=== PATIENT | female | born 1980 | race American Indian/Alaskan Native ===

== ENCOUNTER 2018-07-06 18:34 | Inpatient (IN) | payer MEDICARE, SELFPAY ==
--- NOTE | 2018-07-06 19:14 | Emergency Department Report ---
Blank Doc - Documentation Documentation: This is a 38-year-old female that presents with abdominal pain with n/v. This initial assessment/diagnostic orders/clinical plan/treatment(s) is/are subject to change based on patient's health status, clinical progression and re- assessment by fellow clinical providers in the ED. Further treatment and workup at subsequent clinical providers discretion. Patient/guardians urged not to elope from the ED as their condition may be serious if not clinically assessed and managed. Initial orders include: 1- Patient sent to MAIN ED for further evaluation and treatment 2- labs 3- UA 4- XR abd
[2018-07-06 19:42] LABS: Basophils % (Auto) 0.2 % (0.0-1.8); Hematocrit 37.7 % (30.3-42.9); Hemoglobin 12.9 gm/dl (10.1-14.3); Lymphocytes # (Auto) 0.8 K/mm3 (1.2-5.4); Lymphocytes % (Auto) 5.7 % (13.4-35.0); Mean Corpuscular HGB Conc 34 % (30-34); Mean Corpuscular Volume 91 fl (79-97); Monocytes # (Auto) 1.1 K/mm3 (0.0-0.8); Platelet Count 270 K/mm3 (140-440); Red Blood Count 4.13 M/mm3 (3.65-5.03)
[2018-07-06 19:55] LABS: Albumin 3.8 g/dL (3.9-5); Bilirubin,Direct 0.5 mg/dL (0-0.2); Calcium 9.1 mg/dL (8.4-10.2)
[2018-07-06] MEDS ORDERED: ZOFRAN IV ONE (22:06)
[2018-07-06] MEDS ORDERED: SUBLIMAZE IV ONE (22:06)
[2018-07-06] MEDS ORDERED: NACL 0.9% 500 ML 500 ML IV ONE (22:06)
--- NOTE | 2018-07-06 22:12 | Emergency Department Report ---
HPI - General Chief Complaint: Abdominal Pain Time Seen by Provider: 07/06/18 19:12 - HPI HPI: Room 5 The patient is a 38-year-old female presented with a chief complaint of "peritonitis." The patient states she believes she is peritonitis secondary to onset of cloudy peritoneal dialysis fluid and abdominal pain. Patient states she developed midepigastric abdominal pain last night as constant sharpness that waxes and wanes. The patient states her peritoneal dialysis fluid became cloudy last night as well. Patient is to nausea vomiting and diarrhea. 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 She states she had her PD fluid drained and more fluid place with the addition of antibiotics. Patient states she does not remember the name of the antibiotic. Patient states he was instructed to come to the ED for further evaluation after she was found to be hypotensive. The patient a pain score of 9/10 Location: Abdomen Duration: Constant since last night Quality: Sharp Severity: 9/10 Modifying factors: [see above] Context: [see above] Mode of transportation: [not driving] ED Past Medical Hx - Past Medical History Hx Hypertension: Yes Hx Renal Disease: Yes (PD) Additional medical history: Hypothyroidism - Surgical History Additional Surgical History: thyroidectomy, ovarian cysts removed, peritoneal dialysis catheter - Family History Family history: no significant - Social History Smoking Status: Never Smoker Substance Use Type: None (denies illicit drug use) - Medications Home Medications: Home Medications Medication Instructions Recorded Confirmed Last Taken Type Acetaminophen [Acetaminophen TAB] 650 mg PO Q4H PRN tablet 05/21/17 Unknown Rx Bisacodyl [Dulcolax suppos] 10 mg [place] QDAY PRN supp.rect 05/21/17 Unknown Rx Calcitriol [Rocaltrol] 0.5 mcg PO QDAY capsule 05/21/17 Unknown Rx Calcium Carbonate [Tums] 1,000 mg PO BID tablet 05/21/17 Unknown Rx Dialysate Lo Michael 1.5% Soln 2,000 ml IP Q4H bag 05/21/17 Unknown Rx [Dianeal Low Calcium W/1.5% Dextrose] Famotidine [Pepcid] 10 mg PO BID tablet 05/21/17 Unknown Rx Lactulose [Cephulac] 30 gm PO Q8HR PRN oral.liqd 05/21/17 Unknown Rx Potassium Chloride [K-Dur] 20 meq PO BID tablet 05/21/17 Unknown Rx oxyCODONE /ACETAMINOPHEN [Percocet 1 tab PO Q6H PRN #30 tablet 05/21/17 Unknown Rx 5/325 mg] ED Review of Systems ROS: Stated complaint: PERITONITIS/LOW BLOOD PRESSURE Other details as noted in HPI Constitutional: denies: fever Eyes: denies: eye pain ENT: denies: throat pain Respiratory: no symptoms reported Cardiovascular: denies: chest pain Endocrine: no symptoms reported Gastrointestinal: abdominal pain, nausea, vomiting, diarrhea Genitourinary: denies: abnormal menses Musculoskeletal: denies: back pain Neurological: denies: headache Physical Exam - Physical Exam Vital Signs: Vital Signs 07/06/18 07/06/18 07/06/18 18:53 19:12 22:05 Temperature 99.5 F 99.5 F 99.1 F Pulse Rate 131 H 127 H 123 H Respiratory 20 18 24 Rate Blood Pressure 106/70 Blood Pressure 98/68 101/74 [Left] Blood Pressure 91/60 [Right] O2 Sat by Pulse 98 97 98 Oximetry Physical Exam: GENERAL: The patient is well-developed well-nourished female lying on stretcher not appearing to be in acute distress. [] HEENT: Normocephalic. Atraumatic. Extraocular motions are intact. Patient has moist mucous membranes. NECK: Supple. Trachea midline CHEST/LUNGS: Clear to auscultation. There is no respiratory distress noted. HEART/CARDIOVASCULAR: Regular. There is tachycardia. There is no gallop rub or murmur. ABDOMEN: Abdomen is soft, with tenderness to palpation in the midepigastric region. Patient has normal bowel sounds. There is no abdominal distention. SKIN: There is no rash. There is no edema. There is no diaphoresis. NEURO: The patient is awake, alert, and oriented. The patient is cooperative. The patient has normal speech MUSCULOSKELETAL: There is no evidence of acute injury. ED Course Vital Signs 07/06/18 07/06/18 07/06/18 18:53 19:12 22:05 Temperature 99.5 F 99.5 F 99.1 F Pulse Rate 131 H 127 H 123 H Respiratory 20 18 24 Rate Blood Pressure 106/70 Blood Pressure 98/68 101/74 [Left] Blood Pressure 91/60 [Right] O2 Sat by Pulse 98 97 98 Oximetry - Consultations Consultation #1: 07/07/18 02:21 Nephrology paged 07/07/18 02:[address] Zendejas ED Medical Decision Making - Lab Data Result diagrams: 07/06/18 19:20 07/06/18 19:20 - Differential Diagnosis spontaneous bacterial peritonitis, gastroenteritis, dehydration Critical care attestation.: If time is entered above; I have spent that time in minutes in the direct care of this critically ill patient, excluding procedure time. ED Disposition Clinical Impression: Spontaneous bacterial peritonitis, Leukocytosis Disposition: OP ADMIT IP TO THIS HOSP Is pt being admited?: Yes Does the pt Need Aspirin: No Condition: Fair Instructions: Abdominal Pain (ED) Referrals: LOGAN ARGUETA MD [Primary Care Provider] - 3-5 Days Time of Disposition: 02:27 (hospitalist notified (Dr. Krystle Mistry))
[2018-07-07] MEDS ORDERED: REGLAN IV ONE (02:02)
[2018-07-07] MEDS ORDERED: ROCEPHIN/NS 1 GM/50 ML 1 GM/50 ML BAG IV SCH (02:48)
[2018-07-07] MEDS ORDERED: SODIUM CHLORIDE FLUSH SYRINGE 10 ML IV PRN (02:49)
[2018-07-07] MEDS ORDERED: TYLENOL PO PRN (02:49)
--- NOTE | 2018-07-07 02:54 | History and Physical Report ---
History of Present Illness Date of examination: 07/07/18 History of present illness: 38-year-old woman with history of hypertension, hypothyroidism, end-stage renal disease on peritoneal dialysis because emergency room with complaints of abdominal pain. Abdominal pain is in the mid abdomen which she describes as sharp pain, constant, intensity 6/10, no radiation, can't identify exacerbating factors. Complains of multiple episodes of nausea and vomiting and diarrhea, also state that the peritoneal fluid is cloudy, no fever or chills Review of systems Constitutional: no weight loss, chills, fever Ears, eyes, nose, mouth and throat: no nasal congestion, no nasal discharge, no sinus pressure, no vision change, no red eye. Neck: No neck pain or rigidity. Cardiovascular: no palpitations, chest pain Respiratory: no cough, shortness of breath Gastrointestinal: no hematochezia, +abdominal pain Genitourinary : no frequency , no hematuria Musculoskeletal: no joint swelling or muscle ache Integumentary: no rash, no pruritis Neurological: no parathesias, no focal weakness Endocrine: no cold or heat intolerance, no polyuria or polydipsia Hematologic/Lymphatic: no easy bruising, no easy bleeding, no gland swelling Allergic/Immunologic: no urticaria, no angioedema. PAST MEDICAL HISTORY:hypertension, hypothyroidism, end-stage renal disease PAST SURGICAL HISTORY: Thyroidectomy, cyst removed from the ovary SOCIAL HISTORY: Denies alcohol, drugs, tobacco FAMILY HISTORY: Hypertension Medications and Allergies Allergies Allergy/AdvReac Type Severity Reaction Status Date / Time No Known Allergies Allergy Verified 05/13/14 18:02 Home Medications Medication Instructions Recorded Confirmed Last Taken Type Bisacodyl [Dulcolax suppos] 10 mg [place] QDAY PRN supp.rect 05/21/17 07/07/18 Unknown Rx Dialysate Lo Michael 1.5% Soln 2,000 ml IP Q4H bag 05/21/17 07/07/18 Unknown Rx [Dianeal Low Calcium W/1.5% Dextrose] Pantoprazole [Protonix TAB] 40 mg PO QDAY 07/07/18 07/07/18 2 Days Ago History ~07/05/18 Calcitriol [Rocaltrol] 0.5 mcg PO QDAY #30 capsule 07/12/18 Unknown Rx Calcium Carbonate [Tums] 1,000 mg PO BID #50 tablet 07/12/18 Unknown Rx Pantoprazole [Protonix TAB] 40 mg PO DAILY #30 tablet 07/12/18 Unknown Rx cloNIDine [Catapres] 0.1 mg PO QHS #30 tablet 07/12/18 Unknown Rx Active Meds: Active Medications Acetaminophen (Tylenol) 650 mg PO Q4H PRN PRN Reason: Pain MILD(1-3)/Fever >100.5/BACH Enoxaparin Sodium (Lovenox) 30 mg SUB-Q QDAY PREET Piperacillin Sod/Tazobactam Sod (Zosyn/Ns 2.25 Gm/50ml) 2.25 gm in 50 mls @ 100 mls/hr IV Q8HR PRE[facility]; Protocol Ondansetron HCl (Zofran) 4 mg IV Q4H PRN PRN Reason: Nausea And Vomiting Sodium Chloride (Sodium Chloride Flush Syringe 10 Ml) 10 ml IV BID PREET Sodium Chloride (Sodium Chloride Flush Syringe 10 Ml) 10 ml IV PRN PRN PRN Reason: LINE FLUSH Exam - Physical Exam Narrative exam: General Apperance: The patient lying in bed, breathing comfortable HEENT: Normocephalic, atraumatic. Pupils equally round and reactive to light, EOMI, no sclericterus or JVD or thyromegaly or nodule. , no carotid bruit, mucous membranes moist, no exudate or erythema Heart: S1-S2, regular is rhythm Lungs: Clear to auscultation bilaterally, breathing comfortable Abdomen: Positive bowel sounds, soft, tender diffusely, no rebound or guarding, nondistended, no organomegaly Extremities: No edema cyanosis clubbing Skin: no rash, nodule, warm and dry Neuro: cranial nerves 2-12 intact, speech is fluent, motor/sensory intact - Constitutional Vitals: Temp Pulse Resp BP Pulse Ox 98.7 F 108 H 18 111/64 94 07/07/18 02:20 07/07/18 00:04 07/07/18 00:04 07/07/18 00:04 07/06/18 23:00 Results - Labs CBC & Chem 7: 07/11/18 04:33 07/11/18 04:33 Labs: Abnormal lab results 07/06/18 07/06/18 Range/Units 19:20 19:20 WBC 14.3 H (4.5-11.0) K/mm3 RDW 16.0 H (13.2-15.2) % Lymph % (Auto) 5.7 L (13.4-35.0) % Rock % (Auto) 8.0 H (0.0-7.3) % Lymph # 0.8 L (1.2-5.4) K/mm3 Rock # 1.1 H (0.0-0.8) K/mm3 Seg Neutrophils % 86.1 H (40.0-70.0) % Seg Neutrophils # 12.3 H (1.8-7.7) K/mm3 Potassium 3.1 L (3.6-5.0) mmol/L Chloride 89.2 L (98-107) mmol/L BUN 40 H (7-17) mg/dL Creatinine 16.2 H (0.7-1.2) mg/dL Glucose 156 H (65-100) mg/dL Direct Bilirubin 0.5 H (0-0.2) mg/dL ALT 87 H (7-56) units/L Alkaline Phosphatase 186 H (35-129) units/L Total Protein 8.7 H (6.3-8.2) g/dL Albumin 3.8 L (3.9-5) g/dL Lipase 66 H (13-60) units/L Assessment and Plan Assessment SBP Abdominal pain with diarrhea, rule out colitis End-stage renal disease on PD Hypertension Hypothyroidism Plan Admit medicine Start IV Zosyn,Obtain cultures, CT abdomen Consult renal, IV morphine Continue appropriate outpatient medications DVT prophylaxis
[2018-07-07] MEDS ORDERED: MORPHINE IV PRN (03:04)
[2018-07-07] MEDS: ZOSYN/NS 2.25 GM/50ML 2.25 GM/50 ML BAG IV SCH ×3 (03:39→20:11)
--- NOTE | 2018-07-07 05:20 | Cat Scan Report ---
PROCEDURE: CT ABDOMEN PELVIS WO CON TECHNIQUE: Routine axial imaging was obtained of the abdomen and pelvis without oral or IV contrast. Sagittal and coronal reconstructions were reviewed. HISTORY: abd pain COMPARISONS: None FINDINGS: The lung bases are clear. Pleural fluid is not seen. There is moderate fluid throughout the abdomen and pelvis. Whether this is related to dialysis fluid or nonspecific ascites is uncertain. The liver, gallbladder, biliary tree, pancreas and spleen otherw ise appear normal. The adrenal glands appear normal. The kidneys are very atrophic. There are benign cortical cysts in the right kidney measuring 2.3 cm in diameter. There is no evidence of hydronephros is. The bowel loops are not distended. There is no evidence of adenopathy. There are peritoneal sutur es along the anterior abdominal wall. There is no recurrent hernia. There is a dialysis catheter coil ed in the anterior aspect of the pelvis. The uterus is normal size and reveals coarse calcifications compatible with involuted fibroids. The bladder appears normal. The skeletal structures are well-main tained. IMPRESSION: Considerable free fluid throughout the abdomen and pelvis. However much of this is related to dialysi s versus nonspecific ascites is uncertain. Previous abdominal wall hernia repair without recurrence. Atrophic kidneys with benign cortical cysts in the right kidney. Coarse calcifications along the dome of the uterus compatible with involuted fibroids.. This document is electronically signed by Charanjit Davis MD., July 07 2018 05:17:56 AM ET
[2018-07-07] MEDS ORDERED: VANCOMYCIN/NS 1 GM/250 ML 1 GM/250 ML BAG IV ONE (05:32)
[2018-07-07] MEDS ORDERED: VANCOMYCIN 1,750 MG in NACL 0.9% 500 ML 500 ML IV ONE (06:00)
[2018-07-07] MEDS ORDERED: VANCOMYCIN PHARMACY TO DOSE IV SCH (06:00)
[2018-07-07] MEDS ORDERED: NACL 0.9% 1000 ML 1,000 ML IV SCH (06:00)
[2018-07-07 06:58] LABS: Total Cells Counted 100 /mm3
--- NOTE | 2018-07-07 10:59 | Event Note ---
Date: 07/07/18 Patient with ESRD on dialysis presents with abd pain, nausea, vomiting, diarrhea. I have seen and examined her. Obtain stool studies. consult ID.
[2018-07-07] MEDS: SODIUM CHLORIDE FLUSH SYRINGE 10 ML IV SCH (11:01)
[2018-07-07] MEDS: LOVENOX SUB-Q SCH (11:01)
--- NOTE | 2018-07-07 11:12 | Consultation ---
History of Present Illness - Reason for Consult Consult date: 07/07/18 Abdominal Pain, Leukocytosis, Peritonitis - History of Present Illness This patient is a 38-year old female with a past medical history of hypertension, hypothyroidism, end-stage renal disease on peritoneal dialysis, presented to the emergency room on 07/06/18 with complaints of midepigastric abdominal pain, described as constant sharpeness that waxes and wanes. She also stated thata her peritoneal dialysis fluid became cloudy, she then went to her [employer] and was placed on antibiotics and [facility] On admission WBC 14.3,, Creatinine 16. 2, ALT 87, ALP 186, Temperature 99.5, HR 131 and BP 91/60. Review of Systems: General: no fever,chills, nightsweats, unintentional weight change, or change in appetite, + generalized weakness Cutaneous: no rash, pruritus Head: no headaches or injury Eyes: no changes in vision, eye pain, double vision Ears: no ear pain, ear discharge, ringing or hearing loss Nose: no nose bleeding, stuffiness Mouth & throat: no bleeding gums, no horseness, no dental problems, or swollen glands Neck: no pain, node enlargement/lumps, tyroid enlargement or tenderness Respiratory: no cough, wheezing, sputum, hemoptysis, pleuritic chest pain Cardiovascular: no chest pain, leg edema, cyanosis, JONES, orthopnea Musculoskeletal: no decreased joint motion, bone or joint pain, joint swelling, muscle aches Gastrointestinal: +nausea, no vomiting, hematemesis, diarrhea, constipation, + abdominal tenderness, +PD catheter Genitourinary/Reproductive: no frequent urination, no dysuria, hematuria, incontinence Neurogical: no seizures, no headaches, no weakness, no paresthesias, no loss of speech or vision; no memory loss, no vertigo, no tremors, no numbness Psychiatric: stable mood; no excessive anxiety, sadness or moodiness Medications and Allergies Allergies Allergy/AdvReac Type Severity Reaction Status Date / Time No Known Allergies Allergy Verified 05/13/14 18:02 Home Medications Medication Instructions Recorded Confirmed Last Taken Type Acetaminophen [Acetaminophen TAB] 650 mg PO Q4H PRN tablet 05/21/17 Unknown Rx Bisacodyl [Dulcolax suppos] 10 mg [place] QDAY PRN supp.rect 05/21/17 Unknown Rx Calcitriol [Rocaltrol] 0.5 mcg PO QDAY capsule 05/21/17 Unknown Rx Calcium Carbonate [Tums] 1,000 mg PO BID tablet 05/21/17 Unknown Rx Dialysate Lo Michael 1.5% Soln 2,000 ml IP Q4H bag 05/21/17 Unknown Rx [Dianeal Low Calcium W/1.5% Dextrose] Famotidine [Pepcid] 10 mg PO BID tablet 05/21/17 Unknown Rx Lactulose [Cephulac] 30 gm PO Q8HR PRN oral.liqd 05/21/17 Unknown Rx Potassium Chloride [K-Dur] 20 meq PO BID tablet 05/21/17 Unknown Rx oxyCODONE /ACETAMINOPHEN [Percocet 1 tab PO Q6H PRN #30 tablet 05/21/17 Unknown Rx 5/325 mg] Active Meds: Active Medications Acetaminophen (Tylenol) 650 mg PO Q4H PRN PRN Reason: Pain MILD(1-3)/Fever >100.5/BACH Enoxaparin Sodium (Lovenox) 30 mg SUB-Q QDAY [facility] Last Admin: 07/07/18 11:01 Dose: Not Given Documented by: Piperacillin Sod/Tazobactam Sod (Zosyn/Ns 2.25 Gm/50ml) 2.25 gm in 50 mls @ 100 mls/hr IV Q8H [facility]; Protocol Last Admin: 07/07/18 03:39 Dose: 100 mls/hr Documented by: Sodium Chloride (Nacl 0.9% 1000 Ml) 1,000 mls @ 75 mls/hr IV DIRECT PREET Metoclopramide HCl (Reglan) 5 mg IV Q6H PRN PRN Reason: nausea or vomiting Morphine Sulfate (Morphine) 2 mg IV Q4H PRN PRN Reason: Pain, Moderate (4-6) Ondansetron HCl (Zofran) 4 mg IV Q4H PRN PRN Reason: Nausea And Vomiting Peritoneal Dialysis Solution (Dianeal Low Calcium W/1.5% Dextrose) 2,000 ml IP Q6HR [facility] Sodium Chloride (Sodium Chloride Flush Syringe 10 Ml) 10 ml IV BID [facility] Last Admin: 07/07/18 11:01 Dose: 10 ml Documented by: Sodium Chloride (Sodium Chloride Flush Syringe 10 Ml) 10 ml IV PRN PRN PRN Reason: LINE FLUSH Physical Examination - Physical Exam Narrative exam: Constitutional: Alert, cooperative. generallized weakness. Morbid obesity Head, Ears, Nose: Normocephalic, atraumatic. External ears, nose normal Eyes: Conjunctivae/corneas clear. No icterus. No ptosis. Neck: Supple, no meningeal signs Oral: dentition good, no thrush Cardiovascular: S1, S2 normal. Respiratory: Good air entry, clear to auscultation bilaterally GI: Soft, tender, bowel sounds normal. + PD catheter Musculoskeletal: No pedal edema, no cyanosis. Skin: No rash or abscess. Hem/Lymphatic: No palpable cervical or supraclavicular nodes. No lymphangitis Psych: Mood ok. Affect normal Neurological: Awake, alert, oriented. - Constitutional Vitals: Vital Signs Temp Pulse Resp BP Pulse Ox 98.3 F 117 H 18 107/68 98 07/07/18 08:51 07/07/18 08:51 07/07/18 08:51 07/07/18 08:51 07/07/18 08:51 Temperature -Last 24 Hours Temperature 98.3 F Temperature 98.4 F Temperature 98.7 F Temperature 99.1 F Temperature 99.5 F Temperature 99.5 F Results - Labs CBC & Chem 7: 07/06/18 19:20 07/06/18 19:20 Labs: Abnormal lab results 07/06/18 07/06/18 Range/Units 19:20 19:20 WBC 14.3 H (4.5-11.0) K/mm3 RDW 16.0 H (13.2-15.2) % Lymph % (Auto) 5.7 L (13.4-35.0) % Dare % (Auto) 8.0 H (0.0-7.3) % Lymph # 0.8 L (1.2-5.4) K/mm3 Dare # 1.1 H (0.0-0.8) K/mm3 Seg Neutrophils % 86.1 H (40.0-70.0) % Seg Neutrophils # 12.3 H (1.8-7.7) K/mm3 Potassium 3.1 L (3.6-5.0) mmol/L Chloride 89.2 L (98-107) mmol/L BUN 40 H (7-17) mg/dL Creatinine 16.2 H (0.7-1.2) mg/dL Glucose 156 H (65-100) mg/dL Direct Bilirubin 0.5 H (0-0.2) mg/dL ALT 87 H (7-56) units/L Alkaline Phosphatase 186 H (35-129) units/L Total Protein 8.7 H (6.3-8.2) g/dL Albumin 3.8 L (3.9-5) g/dL Lipase 66 H (13-60) units/L - Imaging and Cardiology CT scan - abdomen: report reviewed (07/07/2018 Abdomen/Pelvis CT:Benign cortical cysts in the right kidney measuring 2.3 cm in diameter. No evidence of hyronephrosis. considerable free fluid throughout t abdomen/pelvis.) Assessment and Plan Cultures: 07/06/2018 Peritoneal Dialysate: in progress 07/06/2018 Blood: in progress A/P: 38-year old female with a past medical history of hypertension, hypothyroidism, end-stage renal disease on peritoneal dialysis, presented to the emergency room on 07/06/18 with complaints of midepigastric abdominal pain, described as constant sharpeness that waxes and wanes. She also stated that her peritoneal dialysis fluid became cloudy, she then went to her [employer] and was placed on antibiotics and [facility]. 1. Sepsis on admission: evidenced by leukocytosis, tachycardia and hypotension. Source likely PD associated Peritonitis.. No fever. Presented to [facility] clinic prior to admission and was treated empirically with intraper itoneal Ancef and Fortaz. Cultures were drawn at the dialysis clinic and are pending. Blood cultures were drawn at [facility] and are pending. Currently being treated with Vancomycin. Start Cefepime. 2. PD associated Peritonitis: Peritoneal fluid shows WBC 9925, RBC 525, Seg, 89.0, Lymphocytes 8.0, Monocytes 3.0, Eosnophils 0, Basophils 0. Previous admission 05/20/18 for sepsis ,etio. peritonitis. Peritoneal dialysate cultures are in progress. Culture from dialysis clinic on 05/16/17 grew gram positive cocci in clusters and pairs. Will follow up with clinic for culture report..Continue renally adjusted Vancomycin and Cefepime. 3. ESRD on peritoneal dialysis; antibiotics renally dosed. 4. Morbid Obesity: Plan: -f/u Blood cultures -f/u peritoneal dialysate cultures -Discontinue Zosyn -Start Cefepime 1 gm IV every 24 hours -Continue Vancomycin PK dosing, target rough 10-[address] Cerrato will be emergency response officer this weekend [phone], please call for questions. [facility] M: [phone] O:[phone]
[2018-07-07] MEDS: REGLAN IV PRN ×2 (11:14→20:12)
[2018-07-07] MEDS: DIANEAL LOW CALCIUM W/1.5% DEXTROSE IP SCH ×2 (11:41→15:19)
--- NOTE | 2018-07-07 15:00 | Consultation ---
History of Present Illness - Reason for Consult end stage renal disease, other (PD catheter peritonitis ) - History of Present Illness 38 year old lady with medical history signficant for HTN , Glomerulonephritis , ESRD on peritoneal dialysis presents wiht complaints of worsening nausea, vomitting and diarrhoea as well as abdominal pain . She denies fevers or chills. Denies othopnea or PND She denies any break in her technique. she denies any bleeding, She has has some low blood pressures. Her curent prescription is 4 cycles , 9hours wiht 2.5L fill volumes and a Last fill without a midday exchange. .She denies edema. Medications and Allergies Allergies Allergy/AdvReac Type Severity Reaction Status Date / Time No Known Allergies Allergy Verified 05/13/14 18:02 Home Medications Medication Instructions Recorded Confirmed Last Taken Type Bisacodyl [Dulcolax suppos] 10 mg [place] QDAY PRN supp.rect 05/21/17 07/07/18 Unknown Rx Calcitriol [Rocaltrol] 0.5 mcg PO QDAY capsule 05/21/17 07/07/18 1 Day Ago Rx ~07/06/18 Calcium Carbonate [Tums] 1,000 mg PO BID tablet 05/21/17 07/07/18 1 Day Ago Rx ~07/06/18 Dialysate Lo Michael 1.5% Soln 2,000 ml IP Q4H bag 05/21/17 07/07/18 Unknown Rx [Dianeal Low Calcium W/1.5% Dextrose] Pantoprazole [Protonix] 40 mg PO QDAY 07/07/18 07/07/18 2 Days Ago History ~07/05/18 cloNIDine [Catapres] 0.1 mg PO QHS 07/07/18 07/07/18 2 Days Ago History ~07/05/18 Active Meds: Active Medications Acetaminophen (Tylenol) 650 mg PO Q4H PRN PRN Reason: Pain MILD(1-3)/Fever >100.5/BACH Enoxaparin Sodium (Lovenox) 30 mg SUB-Q QDAY [facility] Last Admin: 07/07/18 11:01 Dose: Not Given Documented by: Piperacillin Sod/Tazobactam Sod (Zosyn/Ns 2.25 Gm/50ml) 2.25 gm in 50 mls @ 100 mls/hr IV Q8H [facility]; Protocol Last Admin: 07/07/18 11:28 Dose: 100 mls/hr Documented by: Sodium Chloride (Nacl 0.9% 1000 Ml) 1,000 mls @ 75 mls/hr IV DIRECT PREET Metoclopramide HCl (Reglan) 5 mg IV Q6H PRN PRN Reason: nausea or vomiting Last Admin: 07/07/18 11:14 Dose: 5 mg Documented by: Morphine Sulfate (Morphine) 2 mg IV Q4H PRN PRN Reason: Pain, Moderate (4-6) Ondansetron HCl (Zofran) 4 mg IV Q4H PRN PRN Reason: Nausea And Vomiting Peritoneal Dialysis Solution (Dianeal Low Calcium W/1.5% Dextrose) 2,000 ml IP Q6HR [facility] Last Admin: 07/07/18 11:41 Dose: Not Given Documented by: Peritoneal Dialysis Solution (Dianeal Low Calcium W/1.5% Dextrose) 2,500 ml IP Q4HR [facility] Sodium Chloride (Sodium Chloride Flush Syringe 10 Ml) 10 ml IV BID [facility] Last Admin: 07/07/18 11:01 Dose: 10 ml Documented by: Sodium Chloride (Sodium Chloride Flush Syringe 10 Ml) 10 ml IV PRN PRN PRN Reason: LINE FLUSH Review of Systems Constitutional: fatigue, weakness Ears, nose, mouth and throat: no bleeding gums Cardiovascular: orthopnea, lightheadedness, no edema, no shortness of breath Respiratory: no cough Gastrointestinal: abdominal pain, nausea, vomiting, no BRBPR Musculoskeletal: no hot joints Integumentary: no rash Neurological: weakness, no confusion Psychiatric: no anxiety, no memory loss Endocrine: no cold intolerance, no heat intolerance Hematologic/Lymphatic: no easy bruising, no easy bleeding Exam - Vital Signs Vital signs: Vital Signs Temp Pulse Resp BP Pulse Ox 99.5 F 131 H 20 98/68 98 07/06/18 18:53 07/06/18 18:53 07/06/18 18:53 07/06/18 18:53 07/06/18 18:53 - General Appearance General appearance: well-developed, well-nourished EENT: ATNC, PERRL, mucous membranes moist Neck: Present: neck supple Respiratory: Clear to Ascultation Heart: regular, S1S2 Gastrointestinal: Present: normoactive bowel sounds, tenderness, other (peritoneal dialysis catheter with clean dressing external cuff visible just below the surface. ). Absent: distended Integumentary: no rash, warm and dry Neurologic: no focal deficit, CN 3-12 intact Results - Lab Results 07/06/18 19:20 07/06/18 19:20 Most recent lab results Calcium 9.1 mg/dL (8.4-10.2) 07/06/18 19:20 Assessment and Plan - Patient Problems (1) ESRD (end stage renal disease) Current Visit: Yes Status: Acute Plan to address problem: ESRD on peritoneal dialysis -Daily PD - Fluid restriction (2) Peritonitis associated with peritoneal dialysis Current Visit: Yes Status: Acute Plan to address problem: PD catheter associated peritonitis - will initiate PD - ensure antibitoics vancomycin and Zosyn - can change Zosyn to Ceftazidime if available - PD cell count >9000 with numerous RBCS -Recheck Cell count - follow cultures. (3) Hypokalemia Current Visit: Yes Status: Acute Plan to address problem: Hypokalemia - Mild - Monitor . (4) Sepsis Current Visit: No Status: Acute Qualifiers: Sepsis type: sepsis due to unspecified organism Qualified Code(s): A41.9 - Sepsis, unspecified organism Plan to address problem: Sepsis 2/2 PD peritonitis - Leukocytosis and hypotension. - Ensure antibiotics - use yellow bags for PD if possible - Obtain Lactate levels.
[2018-07-07] MEDS ORDERED: DIANEAL LOW CALCIUM W/1.5% DEXTROSE IP SCH (18:00)
[2018-07-08] MEDS: DIANEAL LOW CALCIUM W/1.5% DEXTROSE IP SCH ×2 (01:50→01:56)
[2018-07-08] MEDS: ZOSYN/NS 2.25 GM/50ML 2.25 GM/50 ML BAG IV SCH ×4 (01:53→18:14)
[2018-07-08] MEDS: SODIUM CHLORIDE FLUSH SYRINGE 10 ML IV SCH ×3 (01:59→22:15)
[2018-07-08 05:31] LABS: Basophils % (Auto) 0.3 % (0.0-1.8); Eosinophils % (Auto) 0.1 % (0.0-4.3); Hematocrit 34.2 % (30.3-42.9); Hemoglobin 11.4 gm/dl (10.1-14.3); Lymphocytes # (Auto) 1.4 K/mm3 (1.2-5.4); Lymphocytes % (Auto) 11.1 % (13.4-35.0); Mean Corpuscular HGB Conc 33 % (30-34); Mean Corpuscular Volume 92 fl (79-97); Monocytes # (Auto) 1.4 K/mm3 (0.0-0.8); Monocytes % (Auto) 10.8 % (0.0-7.3); Platelet Count 244 K/mm3 (140-440); Red Blood Count 3.72 M/mm3 (3.65-5.03); Red Cell Distribution Width 15.5 % (13.2-15.2)
[2018-07-08 05:51] LABS: Calcium 8.6 mg/dL (8.4-10.2)
[2018-07-08] MEDS: LOVENOX SUB-Q SCH (10:03)
[2018-07-08] MEDS: DIANEAL LOW CALCIUM W/2.5% DEXTROSE IP SCH ×3 (10:09→22:16)
[2018-07-08] MEDS ORDERED: MAXIPIME/NS 1 GM/100 ML 1 GM/100 ML BAG IV SCH (12:00)
--- NOTE | 2018-07-08 14:11 | Progress Note ---
Assessment and Plan - Patient Problems (1) ESRD (end stage renal disease) Current Visit: Yes Status: Acute Plan to address problem: ESRD on peritoneal dialysis -Daily PD - Fluid restriction (2) Peritonitis associated with peritoneal dialysis Current Visit: Yes Status: Acute Plan to address problem: PD catheter associated peritonitis - will initiate PD - ensure antibitoics vancomycin and Zosyn - can change Zosyn to Ceftazidime if available - PD cell count >9000 with numerous RBCS -Recheck Cell count - follow cultures. (3) Hypokalemia Current Visit: Yes Status: Acute Plan to address problem: Hypokalemia - Mild - Monitor . (4) Sepsis Current Visit: No Status: Acute Qualifiers: Sepsis type: sepsis due to unspecified organism Qualified Code(s): A41.9 - Sepsis, unspecified organism Plan to address problem: Sepsis 2/2 PD peritonitis - Leukocytosis and hypotension. - Ensure antibiotics - can use green bags for PD - Obtain Lactate levels. Subjective Interval history: 38 year old lady with medical history signficant for HTN , Glomerulonephritis , ESRD on peritoneal dialysis presents with complaints of worsening nausea, vomitting and diarrhoea as well as abdominal pain . She denies fevers or chills. Denies othopnea or PND She denies any break in her technique. she denies any bleeding, She has has some low blood pressures. Her curent prescription is 4 cycles , 9hours with 2.5L fill volumes and a Last fill without a midday exchang e. .She denies edema. She has signficant diarrhoea current on contact precautions Abdominal pain is improved. tolerated PD overnight. Objective - Vital Signs Vital signs: Vital Signs - 12hr 07/08/18 07/08/18 07/08/18 04:03 08:37 10:00 Temperature 98.4 F 98.4 F Pulse Rate 100 H 110 H Respiratory 16 16 Rate Blood Pressure 87/44 Blood Pressure 80/54 [Left] O2 Sat by Pulse 92 96 94 Oximetry - General Appearance General appearance: well-developed, well-nourished EENT: ATNC, PERRL, mucous membranes moist Neck: no JVD Respiratory: Present: Clear to Ascultation Cardiology: regular, S1S2 Gastrointestinal: normal, normoactive bowel sounds Integumentary: no rash Neurologic: no focal deficit, alert and oriented x3 Musculoskeletal: joint swelling Psychiatric: mood/affect appropriate - Lab 03/30/19 04:41 07/08/18 04:41 Most recent lab results Calcium 8.6 mg/dL (8.4-10.2) 07/08/18 04:41 Medications & Allergies - Medications Allergies/Adverse Reactions: Allergies No Known Allergies Allergy (Verified 05/13/14 18:02) Home Medications: Home Medications Medication Instructions Recorded Confirmed Last Taken Type Bisacodyl [Dulcolax suppos] 10 mg [place] QDAY PRN supp.rect 05/21/17 07/07/18 Unknown Rx Calcitriol [Rocaltrol] 0.5 mcg PO QDAY capsule 05/21/17 07/07/18 1 Day Ago Rx ~07/06/18 Calcium Carbonate [Tums] 1,000 mg PO BID tablet 05/21/17 07/07/18 1 Day Ago Rx ~07/06/18 Dialysate Lo Michael 1.5% Soln 2,000 ml IP Q4H bag 05/21/17 07/07/18 Unknown Rx [Dianeal Low Calcium W/1.5% Dextrose] Pantoprazole [Protonix] 40 mg PO QDAY 07/07/18 07/07/18 2 Days Ago History ~07/05/18 cloNIDine [Catapres] 0.1 mg PO QHS 07/07/18 07/07/18 2 Days Ago History ~07/05/18 Active Medications: Generic Name Dose Route Start Last Admin Trade Name Freq PRN Reason Stop Dose Admin Acetaminophen 650 mg 07/07/18 02:49 Tylenol PO Q4H PRN Pain MILD(1-3)/Fever >100.5/BACH Enoxaparin Sodium 30 mg 07/07/18 10:00 07/08/18 10:03 Lovenox SUB-Q 30 mg QDAY PREET Administration Piperacillin Sod/Tazobactam Sod 2.25 gm in 50 mls @ 100 mls/hr 07/07/18 03:00 07/08/18 10:02 Zosyn/Ns 2.25 Gm/50ml IV 100 mls/hr Q8H PREET Administration Protocol Sodium Chloride 1,000 mls @ 75 mls/hr 07/07/18 06:00 Nacl 0.9% 1000 Ml IV DIRECT PREET Cefepime HCl 1 gm in 100 mls @ 200 mls/hr 07/08/18 12:00 Maxipime/Ns 1 Gm/100 Ml IV 07/15/18 11:59 Q48HR PREET Protocol Metoclopramide HCl 5 mg 07/07/18 10:56 07/07/18 20:12 Reglan IV 5 mg Q6H PRN Administration nausea or vomiting Morphine Sulfate 2 mg 07/07/18 03:04 Morphine IV Q4H PRN Pain, Moderate (4-6) Ondansetron HCl 4 mg 07/07/18 02:49 Zofran IV Q4H PRN Nausea And Vomiting Peritoneal Dialysis Solution 2,000 ml 07/08/18 10:00 07/08/18 10:09 Dianeal Low Calcium W/2.5% Dextrose IP 2,000 ml Q6H PREET Administration Sodium Chloride 10 ml 07/07/18 10:00 07/08/18 10:08 Sodium Chloride Flush Syringe 10 Ml IV 10 ml BID PREET Administration Sodium Chloride 10 ml 07/07/18 02:49 Sodium Chloride Flush Syringe 10 Ml IV PRN PRN LINE FLUSH
[2018-07-08] MEDS: ZOFRAN IV PRN ×2 (16:18→22:15)
[2018-07-09] MEDS: ZOSYN/NS 2.25 GM/50ML 2.25 GM/50 ML BAG IV SCH (03:04)
[2018-07-09] MEDS: DIANEAL LOW CALCIUM W/2.5% DEXTROSE IP SCH ×2 (03:05→10:57)
[2018-07-09] MEDS ORDERED: DULCOLAX PR PRN (09:25)
[2018-07-09] MEDS ORDERED: PEPCID PO SCH (10:00)
[2018-07-09] MEDS ORDERED: PROTONIX IV SCH (10:00)
[2018-07-09] MEDS: LOVENOX SUB-Q SCH (10:50)
[2018-07-09] MEDS: ROCALTROL PO SCH (10:50)
[2018-07-09] MEDS: SODIUM CHLORIDE FLUSH SYRINGE 10 ML IV SCH ×2 (10:51→21:50)
[2018-07-09] MEDS: TUMS PO SCH ×2 (10:51→22:55)
[2018-07-09] MEDS ORDERED: VANCOMYCIN 1,500 MG in NACL 0.9% 500 ML 500 ML IV ONE (11:30)
--- NOTE | 2018-07-09 11:58 | Progress Note ---
Assessment and Plan Assessment and plan: Sepsis due to peritonitis On Cefepime, Vancomycin ID Physician following Peritonitis Peritoneal dialysis he relates culture growing gram-negative rods Continue IV antibiotics ID physician following ESRD on peritoneal dialysis Nephrology managing HTN Hypothyroidism nausea and vomiting due to sepsis,peritonitis. Zofran, Reglan DVT prophylaxis Full code status Hospitalist Physical - Physical exam Narrative exam: GEN: Not in acute distress, lying in bed, morbidly obese HEENT: Normocephalic, atraumatic, Neck: supple, No JVD heart: S1 and S2 reg, no murmurs, rubs or gallop Lungs: Clear to auscultation bilaterally, no wheeze Abd:soft, mild mid abd tender, non distended, normal bowel sounds Ext: No edema,no clubbing, no cyanosis, Neuro:Awake,alert,oriented X 3, no focal signs, moves all ext Psych: normal mood - Constitutional Vitals: Temp Pulse Resp BP Pulse Ox 98.3 F 110 H 16 83/56 95 07/09/18 09:28 07/09/18 09:28 07/09/18 09:28 07/09/18 09:28 07/09/18 09:28 Results - Labs CBC & Chem 7: 07/08/18 04:41 07/08/18 04:41 Labs: Laboratory Last Values WBC 12.9 K/mm3 (4.5-11.0) H 07/08/18 04:41 RBC 3.72 M/mm3 (3.65-5.03) 07/08/18 04:41 Hgb 11.4 gm/dl (10.1-14.3) 07/08/18 04:41 Hct 34.2 % (30.3-42.9) 07/08/18 04:41 MCV 92 fl (79-97) 07/08/18 04:41 MCH 31 pg (28-32) 07/08/18 04:41 MCHC 33 % (30-34) 07/08/18 04:41 RDW 15.5 % (13.2-15.2) H 07/08/18 04:41 Plt Count 244 K/mm3 (140-440) 07/08/18 04:41 Lymph % (Auto) 11.1 % (13.4-35.0) L 07/08/18 04:41 [place] % (Auto) 10.8 % (0.0-7.3) H 07/08/18 04:41 Eos % (Auto) 0.1 % (0.0-4.3) 07/08/18 04:41 Baso % (Auto) 0.3 % (0.0-1.8) 07/08/18 04:41 Lymph # 1.4 K/mm3 (1.2-5.4) 07/08/18 04:41 [place] # 1.4 K/mm3 (0.0-0.8) H 07/08/18 04:41 Eos # 0.0 K/mm3 (0.0-0.4) 07/08/18 04:41 Baso # 0.0 K/mm3 (0.0-0.1) 07/08/18 04:41 Seg Neutrophils % 77.7 % (40.0-70.0) H 07/08/18 04:41 Seg Neutrophils # 10.0 K/mm3 (1.8-7.7) H 07/08/18 04:41 Sodium 140 mmol/L (137-145) 07/08/18 04:41 Potassium 3.1 mmol/L (3.6-5.0) L 07/08/18 04:41 Chloride 88.5 mmol/L (98-107) L 07/08/18 04:41 Carbon Dioxide 27 mmol/L (22-30) 07/08/18 04:41 Anion Gap 28 mmol/L 07/08/18 04:41 BUN 50 mg/dL (7-17) H 07/08/18 04:41 Creatinine 17.8 mg/dL (0.7-1.2) H 07/08/18 04:41 Estimated GFR 3 ml/min 07/08/18 04:41 BUN/Creatinine Ratio 3 % 07/08/18 04:41 Glucose 140 mg/dL (65-100) H 07/08/18 04:41 Calcium 8.6 mg/dL (8.4-10.2) 07/08/18 04:41 Total Bilirubin 0.90 mg/dL (0.1-1.2) 07/06/18 19:20 Direct Bilirubin 0.5 mg/dL (0-0.2) H 07/06/18 19:20 Indirect Bilirubin 0.4 mg/dL 07/06/18 19:20 AST 36 units/L (5-40) 07/06/18 19:20 ALT 87 units/L (7-56) H 07/06/18 19:20 Alkaline Phosphatase 186 units/L (35-129) H 07/06/18 19:20 Total Protein 8.7 g/dL (6.3-8.2) H 07/06/18 19:20 Albumin 3.8 g/dL (3.9-5) L 07/06/18 19:20 Albumin/Globulin Ratio 0.8 % 07/06/18 19:20 Lipase 66 units/L (13-60) H 07/06/18 19:20 Fluid Type Peritoneal 07/07/18 00:22 Fluid Color Straw 07/07/18 00:22 Fluid Appearance Cloudy 07/07/18 00:22 Fluid WBC 9925 /mm3 07/07/18 00:22 Fluid RBC 525 /mm3 07/07/18 00:22 Fluid Seg Neutrophils 89.0 % 07/07/18 00:22 Fluid Lymphocytes 8.0 % 07/07/18 00:22 Fluid Reactive Lymphs 0 % 07/07/18 00:22 Fluid Monocytes 3.0 % 07/07/18 00:22 Fluid Eosinophils 0 % 07/07/18 00:22 Fluid Basophils 0 % 07/07/18 00:22 Fluid Comment Diff performed 07/07/18 00:22 Random Vancomycin 4.0 ug/mL (0-40.0) 07/09/18 06:38 C. difficile Toxin A&B Negative (Negative) 07/07/18 22:48 Active Medications - Current Medications Current Medications: Generic Name Dose Route Start Last Admin Trade Name Freq PRN Reason Stop Dose Admin Acetaminophen 650 mg 07/07/18 02:49 Tylenol PO Q4H PRN Pain MILD(1-3)/Fever >100.5/BACH Bisacodyl 10 mg 07/09/18 09:25 Dulcolax [place] QDAY PRN Constipation unrelieved by MOM Calcitriol 0.5 mcg 07/09/18 10:00 07/09/18 10:50 Rocaltrol PO 0.5 mcg QDAY PREET Administration Calcium Carbonate/Glycine 1,000 mg 07/09/18 10:00 07/09/18 10:51 Tums PO 1,000 mg BID PREET Administration Enoxaparin Sodium 30 mg 07/07/18 10:00 07/09/18 10:50 Lovenox SUB-Q Not Given QDAY PREET Sodium Chloride 1,000 mls @ 75 mls/hr 07/07/18 06:00 Nacl 0.9% 1000 Ml IV DIRECT PREET Cefepime HCl 1 gm in 100 mls @ 200 mls/hr 07/08/18 12:00 07/08/18 16:13 Maxipime/Ns 1 Gm/100 Ml IV 07/15/18 11:59 200 mls/hr Q48HR PREET Administration Protocol Vancomycin HCl 1,500 mg/ 530 mls @ 333.333 mls/hr 07/09/18 11:30 07/09/18 11:33 Sodium Chloride IV 07/09/18 13:05 333.333 mls/hr ONCE ONE Administration Metoclopramide HCl 5 mg 07/07/18 10:56 07/07/18 20:12 Reglan IV 5 mg Q6H PRN Administration nausea or vomiting Morphine Sulfate 2 mg 07/07/18 03:04 Morphine IV Q4H PRN Pain, Moderate (4-6) Ondansetron HCl 4 mg 07/07/18 02:49 07/08/18 22:15 Zofran IV 4 mg Q4H PRN Administration Nausea And Vomiting Pantoprazole Sodium 40 mg 07/09/18 10:00 07/09/18 10:50 Protonix IV 07/09/18 14:00 40 mg QDAY PREET Administration Pantoprazole Sodium 40 mg 07/10/18 10:00 Protonix PO DAILY PREET Peritoneal Dialysis Solution 2,000 ml 07/08/18 10:00 07/09/18 10:57 Dianeal Low Calcium W/2.5% Dextrose IP 2,000 ml Q6H PREET Administration Sodium Chloride 10 ml 07/07/18 10:00 07/09/18 10:51 Sodium Chloride Flush Syringe 10 Ml IV 10 ml BID PREET Administration Sodium Chloride 10 ml 07/07/18 02:49 Sodium Chloride Flush Syringe 10 Ml IV PRN PRN LINE FLUSH
--- NOTE | 2018-07-09 12:09 | Progress Note ---
Assessment and Plan Assessment and plan: Sepsis due to peritonitis On Cefepime, Vancomycin ID Physician following Peritonitis Peritoneal dialysis he relates culture growing gram-negative rods Continue IV antibiotics ID physician following ESRD on peritoneal dialysis Nephrology managing HTN BP low. hold Clonidine Hypotension. Monitor Hypothyroidism nausea and vomiting due to sepsis,peritonitis. Zofran, Reglan DVT prophylaxis Full code status History Interval history: Patient with ESRD with sepsis due to peritonitis still having nausea and vomiting Hospitalist Physical - Physical exam Narrative exam: GEN: Not in acute distress, lying in bed, morbidly obese HEENT: Normocephalic, atraumatic, Neck: supple, No JVD heart: S1 and S2 reg, no murmurs, rubs or gallop Lungs: Clear to auscultation bilaterally, no wheeze Abd:soft, mild mid abd tender, non distended, normal bowel sounds,PD catheter Ext: No edema,no clubbing, no cyanosis, Neuro:Awake,alert,oriented X 3, no focal signs, moves all ext Psych: normal mood - Constitutional Vitals: Temp Pulse Resp BP Pulse Ox 98.3 F 110 H 16 83/56 95 07/09/18 09:28 07/09/18 09:28 07/09/18 09:28 07/09/18 09:28 07/09/18 09:28 Results - Labs CBC & Chem 7: 07/08/18 04:41 07/08/18 04:41 Labs: Laboratory Last Values WBC 12.9 K/mm3 (4.5-11.0) H 07/08/18 04:41 RBC 3.72 M/mm3 (3.65-5.03) 07/08/18 04:41 Hgb 11.4 gm/dl (10.1-14.3) 07/08/18 04:41 Hct 34.2 % (30.3-42.9) 07/08/18 04:41 MCV 92 fl (79-97) 07/08/18 04:41 MCH 31 pg (28-32) 07/08/18 04:41 MCHC 33 % (30-34) 07/08/18 04:41 RDW 15.5 % (13.2-15.2) H 07/08/18 04:41 Plt Count 244 K/mm3 (140-440) 07/08/18 04:41 Lymph % (Auto) 11.1 % (13.4-35.0) L 07/08/18 04:41 [place] % (Auto) 10.8 % (0.0-7.3) H 07/08/18 04:41 Eos % (Auto) 0.1 % (0.0-4.3) 07/08/18 04:41 Baso % (Auto) 0.3 % (0.0-1.8) 07/08/18 04:41 Lymph # 1.4 K/mm3 (1.2-5.4) 07/08/18 04:41 [place] # 1.4 K/mm3 (0.0-0.8) H 07/08/18 04:41 Eos # 0.0 K/mm3 (0.0-0.4) 07/08/18 04:41 Baso # 0.0 K/mm3 (0.0-0.1) 07/08/18 04:41 Seg Neutrophils % 77.7 % (40.0-70.0) H 07/08/18 04:41 Seg Neutrophils # 10.0 K/mm3 (1.8-7.7) H 07/08/18 04:41 Sodium 140 mmol/L (137-145) 07/08/18 04:41 Potassium 3.1 mmol/L (3.6-5.0) L 07/08/18 04:41 Chloride 88.5 mmol/L (98-107) L 07/08/18 04:41 Carbon Dioxide 27 mmol/L (22-30) 07/08/18 04:41 Anion Gap 28 mmol/L 07/08/18 04:41 BUN 50 mg/dL (7-17) H 07/08/18 04:41 Creatinine 17.8 mg/dL (0.7-1.2) H 07/08/18 04:41 Estimated GFR 3 ml/min 07/08/18 04:41 BUN/Creatinine Ratio 3 % 07/08/18 04:41 Glucose 140 mg/dL (65-100) H 07/08/18 04:41 Calcium 8.6 mg/dL (8.4-10.2) 07/08/18 04:41 Total Bilirubin 0.90 mg/dL (0.1-1.2) 07/06/18 19:20 Direct Bilirubin 0.5 mg/dL (0-0.2) H 07/06/18 19:20 Indirect Bilirubin 0.4 mg/dL 07/06/18 19:20 AST 36 units/L (5-40) 07/06/18 19:20 ALT 87 units/L (7-56) H 07/06/18 19:20 Alkaline Phosphatase 186 units/L (35-129) H 07/06/18 19:20 Total Protein 8.7 g/dL (6.3-8.2) H 07/06/18 19:20 Albumin 3.8 g/dL (3.9-5) L 07/06/18 19:20 Albumin/Globulin Ratio 0.8 % 07/06/18 19:20 Lipase 66 units/L (13-60) H 07/06/18 19:20 Fluid Type Peritoneal 07/07/18 00:22 Fluid Color Straw 07/07/18 00:22 Fluid Appearance Cloudy 07/07/18 00:22 Fluid WBC 9925 /mm3 07/07/18 00:22 Fluid RBC 525 /mm3 07/07/18 00:22 Fluid Seg Neutrophils 89.0 % 07/07/18 00:22 Fluid Lymphocytes 8.0 % 07/07/18 00:22 Fluid Reactive Lymphs 0 % 07/07/18 00:22 Fluid Monocytes 3.0 % 07/07/18 00:22 Fluid Eosinophils 0 % 07/07/18 00:22 Fluid Basophils 0 % 07/07/18 00:22 Fluid Comment Diff performed 07/07/18 00:22 Random Vancomycin 4.0 ug/mL (0-40.0) 07/09/18 06:38 C. difficile Toxin A&B Negative (Negative) 07/07/18 22:48 Active Medications - Current Medications Current Medications: Generic Name Dose Route Start Last Admin Trade Name Freq PRN Reason Stop Dose Admin Acetaminophen 650 mg 07/07/18 02:49 Tylenol PO Q4H PRN Pain MILD(1-3)/Fever >100.5/BACH Bisacodyl 10 mg 07/09/18 09:25 Dulcolax [place] QDAY PRN Constipation unrelieved by MOM Calcitriol 0.5 mcg 07/09/18 10:00 07/09/18 10:50 Rocaltrol PO 0.5 mcg QDAY PREET Administration Calcium Carbonate/Glycine 1,000 mg 07/09/18 10:00 07/09/18 10:51 Tums PO 1,000 mg BID PREET Administration Enoxaparin Sodium 30 mg 07/07/18 10:00 07/09/18 10:50 Lovenox SUB-Q Not Given QDAY PREET Sodium Chloride 1,000 mls @ 75 mls/hr 07/07/18 06:00 Nacl 0.9% 1000 Ml IV DIRECT PREET Cefepime HCl 1 gm in 100 mls @ 200 mls/hr 07/08/18 12:00 07/08/18 16:13 Maxipime/Ns 1 Gm/100 Ml IV 07/15/18 11:59 200 mls/hr Q48HR PREET Administration Protocol Vancomycin HCl 1,500 mg/ 530 mls @ 333.333 mls/hr 07/09/18 11:30 07/09/18 11:33 Sodium Chloride IV 07/09/18 13:05 333.333 mls/hr ONCE ONE Administration Metoclopramide HCl 5 mg 07/07/18 10:56 07/07/18 20:12 Reglan IV 5 mg Q6H PRN Administration nausea or vomiting Morphine Sulfate 2 mg 07/07/18 03:04 Morphine IV Q4H PRN Pain, Moderate (4-6) Ondansetron HCl 4 mg 07/07/18 02:49 07/08/18 22:15 Zofran IV 4 mg Q4H PRN Administration Nausea And Vomiting Pantoprazole Sodium 40 mg 07/09/18 10:00 07/09/18 10:50 Protonix IV 07/09/18 14:00 40 mg QDAY PREET Administration Pantoprazole Sodium 40 mg 07/10/18 10:00 Protonix PO DAILY PREET Peritoneal Dialysis Solution 2,000 ml 07/08/18 10:00 07/09/18 10:57 Dianeal Low Calcium W/2.5% Dextrose IP 2,000 ml Q6H PREET Administration Sodium Chloride 10 ml 07/07/18 10:00 07/09/18 10:51 Sodium Chloride Flush Syringe 10 Ml IV 10 ml BID PREET Administration Sodium Chloride 10 ml 07/07/18 02:49 Sodium Chloride Flush Syringe 10 Ml IV PRN PRN LINE FLUSH
--- NOTE | 2018-07-09 14:15 | Progress Note ---
Assessment and Plan - Patient Problems (1) ESRD (end stage renal disease) Current Visit: Yes Status: Acute Plan to address problem: ESRD on peritoneal dialysis -Daily PD - Fluid restriction We'll change from yellow to green bags absorb fluids yesterday with 1.5% peritoneal dialysate (2) Peritonitis associated with peritoneal dialysis Current Visit: Yes Status: Acute Plan to address problem: PD catheter associated peritonitis - will initiate PD - ensure antibiotics vancomycin and Zosyn - can change Zosyn to Ceftazidime if available - PD cell count >9000 with numerous RBCS -Recheck Cell count -PD fluid culture with gram-negative reta (3) Hypokalemia Current Visit: Yes Status: Acute Plan to address problem: Hypokalemia:3.1mg/dl - Mild -will give 20meq potassium today. - Monitor . (4) Sepsis Current Visit: No Status: Acute Qualifiers: Sepsis type: sepsis due to unspecified organism Qualified Code(s): A41.9 - Sepsis, unspecified organism Plan to address problem: Sepsis 2/2 PD peritonitis - Leukocytosis and hypotension. - Ensure antibiotics - can use green bags for PD - Repeat PD cell count today -Peritoneal fluid with gram-negative rods sensitivities pending Subjective Interval history: 38 year old lady with medical history signficant for HTN , Glomerulonephritis , ESRD on peritoneal dialysis presents with complaints of worsening nausea, vomitting and diarrhoea as well as abdominal pain . She denies fevers or chills. Denies othopnea or PND She denies any break in her technique. she denies any bleeding, She has has some low blood pressures. Her curent prescription is 4 cycles , 9hours with 2.5L fill volumes and a Last fill without a midday exchange. .She denies edema. Still has some nausea and vomiting denies any abdominal pain No more diarrhea Stool cultures negative for C. difficile I attest I saw the patient on peritoneal dialysis at 1 PM Abdominal pain is improved. tolerated PD overnight. Objective - Vital Signs Vital signs: Vital Signs - 12hr 07/09/18 07/09/18 07/09/18 05:31 09:28 10:00 Temperature 98.1 F 98.3 F Pulse Rate 111 H 110 H Pulse Rate [ 110 H From Monitor] Respiratory 20 16 16 Rate Blood Pressure 87/63 Blood Pressure 83/56 [Left] O2 Sat by Pulse 93 95 95 Oximetry - General Appearance General appearance: well-developed, well-nourished EENT: ATNC, PERRL, mucous membranes moist Neck: no JVD Respiratory: Present: Clear to Ascultation Cardiology: regular, S1S2 Gastrointestinal: normal, normoactive bowel sounds Integumentary: no rash Neurologic: no focal deficit, alert and oriented x3 Psychiatric: mood/affect appropriate - Lab 07/08/18 04:41 07/08/18 04:41 Most recent lab results Calcium 8.6 mg/dL (8.4-10.2) 07/08/18 04:41 Medications & Allergies - Medications Allergies/Adverse Reactions: Allergies No Known Allergies Allergy (Verified 05/13/14 18:02) Home Medications: Home Medications Medication Instructions Recorded Confirmed Last Taken Type Bisacodyl [Dulcolax suppos] 10 mg [place] QDAY PRN supp.rect 05/21/17 07/07/18 Unknown Rx Calcitriol [Rocaltrol] 0.5 mcg PO QDAY capsule 05/21/17 07/07/18 1 Day Ago Rx ~07/06/18 Calcium Carbonate [Tums] 1,000 mg PO BID tablet 05/21/17 07/07/18 1 Day Ago Rx ~07/06/18 Dialysate Lo Michael 1.5% Soln 2,000 ml IP Q4H bag 05/21/17 07/07/18 Unknown Rx [Dianeal Low Calcium W/1.5% Dextrose] Pantoprazole [Protonix] 40 mg PO QDAY 07/07/18 07/07/18 2 Days Ago History ~07/05/18 cloNIDine [Catapres] 0.1 mg PO QHS 07/07/18 07/07/18 2 Days Ago History ~07/05/18 Active Medications: Generic Name Dose Route Start Last Admin Trade Name Freq PRN Reason Stop Dose Admin Acetaminophen 650 mg 07/07/18 02:49 Tylenol PO Q4H PRN Pain MILD(1-3)/Fever >100.5/BACH Bisacodyl 10 mg 07/09/18 09:25 Dulcolax [place] QDAY PRN Constipation unrelieved by MOM Calcitriol 0.5 mcg 07/09/18 10:00 07/09/18 10:50 Rocaltrol PO 0.5 mcg QDAY PRE[facility] Administration Calcium Carbonate/Glycine 1,000 mg 07/09/18 10:00 07/09/18 10:51 Tums PO 1,000 mg BID PREET Administration Enoxaparin Sodium 30 mg 07/07/18 10:00 07/09/18 10:50 Lovenox SUB-Q Not Given QDAY [facility] Cefepime HCl 1 gm in 100 mls @ 200 mls/hr 07/08/18 12:00 07/08/18 16:13 Maxipime/Ns 1 Gm/100 Ml IV 07/15/18 11:59 200 mls/hr Q48HR PREET Administration Protocol Metoclopramide HCl 5 mg 07/07/18 10:56 07/07/18 20:12 Reglan IV 5 mg Q6H PRN Administration nausea or vomiting Morphine Sulfate 2 mg 07/07/18 03:04 Morphine IV Q4H PRN Pain, Moderate (4-6) Ondansetron HCl 4 mg 07/07/18 02:49 07/08/18 22:15 Zofran IV 4 mg Q4H PRN Administration Nausea And Vomiting Pantoprazole Sodium 40 mg 07/10/18 10:00 Protonix PO DAILY [facility] Peritoneal Dialysis Solution 2,000 ml 07/09/18 15:00 Dianeal Pd-2 W/2.5% Dextrose IP Q4H [facility] Sodium Chloride 10 ml 07/07/18 10:00 07/09/18 10:51 Sodium Chloride Flush Syringe 10 Ml IV 10 ml BID PREET Administration Sodium Chloride 10 ml 07/07/18 02:49 Sodium Chloride Flush Syringe 10 Ml IV PRN PRN LINE FLUSH
[2018-07-09] MEDS ORDERED: K-DUR PO ONE (14:19)
[2018-07-09] MEDS ORDERED: DIANEAL PD IP SCH (15:00)
[2018-07-09] MEDS ORDERED: DEXTROSE IP SCH (15:00)
[2018-07-09 18:55] LABS: Total Cells Counted 100 /mm3
[2018-07-09] MEDS: DIANEAL PD IP SCH (21:49)
[2018-07-09] MEDS: DEXTROSE IP SCH (21:49)
[2018-07-09] MEDS ORDERED: CATAPRES PO SCH (22:00)
[2018-07-10] MEDS: DIANEAL PD IP SCH ×4 (02:00→16:00)
[2018-07-10] MEDS: DEXTROSE IP SCH ×4 (02:00→16:00)
[2018-07-10 06:03] LABS: Hematocrit 39.9 % (30.3-42.9); Hemoglobin 13.2 gm/dl (10.1-14.3); Mean Corpuscular HGB Conc 33 % (30-34); Mean Corpuscular Volume 92 fl (79-97); Platelet Count 317 K/mm3 (140-440); Red Blood Count 4.34 M/mm3 (3.65-5.03); Red Cell Distribution Width 15.6 % (13.2-15.2)
[2018-07-10 06:26] LABS: Calcium 9.1 mg/dL (8.4-10.2)
--- NOTE | 2018-07-10 10:14 | Progress Note ---
Assessment and Plan Impression * End-stage renal disease * peritonitis * Hypotension * Anemia secondary to ESRD Recommendations * Patient's PD fluid is growing gram-negative rods. * PD fluid cell count has come down to 50. Her abdominal pain has also resolved. * She seems to be responding to current antibiotic regimen. * Plan to continue ceftazidime for a total of 3 weeks. Outpatient intraperitoneal can be arranged * A blood pressure seems to be better this morning * Okay to discharge patient home from renal standpoint once the blood pressure stabilizes Subjective Date of service: 07/10/18 Interval history: Patient is comfortable this morning. Denies any shortness of breath. States that her PD fluid is clear. Objective - Vital Signs Vital signs: Vital Signs - 12hr 07/09/18 07/10/18 07/10/18 23:24 04:35 06:35 Temperature 98.0 F 98.0 F Pulse Rate 112 H 105 H 96 H Respiratory 18 18 16 Rate Blood Pressure 98/65 72/48 Blood Pressure 87/60 [Right] O2 Sat by Pulse 100 95 Oximetry 07/10/18 08:22 Temperature 97.8 F Pulse Rate Respiratory 16 Rate Blood Pressure 94/67 Blood Pressure [Right] O2 Sat by Pulse Oximetry - General Appearance General appearance: well-developed, well-nourished, appears stated age EENT: PERRL, mucous membranes moist Neck: no JVD, no thyromegaly, no carotid bruit, supple Respiratory: Present: Clear to Ascultation Cardiology: regular, normal heart rate, S1S2, no murmurs Gastrointestinal: normal, normoactive bowel sounds, other (PD catheter in place) Integumentary: no rash, other (no edema) - Lab 07/10/18 04:47 07/10/18 04:47 Most recent lab results Calcium 9.1 mg/dL (8.4-10.2) 07/10/18 04:47 Medications & Allergies - Medications Allergies/Adverse Reactions: Allergies No Known Allergies Allergy (Verified 05/13/14 18:02) Home Medications: Home Medications Medication Instructions Recorded Confirmed Last Taken Type Bisacodyl [Dulcolax suppos] 10 mg [place] QDAY PRN supp.rect 05/21/17 07/07/18 Unknown Rx Calcitriol [Rocaltrol] 0.5 mcg PO QDAY capsule 05/21/17 07/07/18 1 Day Ago Rx ~07/06/18 Calcium Carbonate [Tums] 1,000 mg PO BID tablet 05/21/17 07/07/18 1 Day Ago Rx ~07/06/18 Dialysate Lo Michael 1.5% Soln 2,000 ml IP Q4H bag 05/21/17 07/07/18 Unknown Rx [Dianeal Low Calcium W/1.5% Dextrose] Pantoprazole [Protonix] 40 mg PO QDAY 07/07/18 07/07/18 2 Days Ago History ~07/05/18 cloNIDine [Catapres] 0.1 mg PO QHS 07/07/18 07/07/18 2 Days Ago History ~07/05/18 Active Medications: Generic Name Dose Route Start Last Admin Trade Name Freq PRN Reason Stop Dose Admin Acetaminophen 650 mg 07/07/18 02:49 Tylenol PO Q4H PRN Pain MILD(1-3)/Fever >100.5/BACH Bisacodyl 10 mg 07/09/18 09:25 Dulcolax [place] QDAY PRN Constipation unrelieved by MOM Calcitriol 0.5 mcg 07/09/18 10:00 07/09/18 10:50 Rocaltrol PO 0.5 mcg QDAY [facility] Administration Calcium Carbonate/Glycine 1,000 mg 07/09/18 10:00 07/09/18 22:55 Tums PO Not Given BID [facility] Enoxaparin Sodium 30 mg 07/07/18 10:00 07/09/18 10:50 Lovenox SUB-Q Not Given QDAY [facility] Cefepime HCl 1 gm in 100 mls @ 200 mls/hr 07/10/18 20:00 Maxipime/Ns 1 Gm/100 Ml IV Q24H [facility] Protocol Metoclopramide HCl 5 mg 07/07/18 10:56 07/07/18 20:12 Reglan IV 5 mg Q6H PRN Administration nausea or vomiting Morphine Sulfate 2 mg 07/07/18 03:04 Morphine IV Q4H PRN Pain, Moderate (4-6) Ondansetron HCl 4 mg 07/07/18 02:49 07/08/18 22:15 Zofran IV 4 mg Q4H PRN Administration Nausea And Vomiting Pantoprazole Sodium 40 mg 07/10/18 10:00 Protonix PO DAILY [facility] Peritoneal Dialysis Solution 2,000 ml 07/09/18 20:00 07/10/18 06:00 Dianeal Pd-2 W/2.5% Dextrose IP 2,000 ml Q4H [facility] Administration Sodium Chloride 10 ml 07/07/18 10:00 07/09/18 21:50 Sodium Chloride Flush Syringe 10 Ml IV 10 ml BID PREET Administration Sodium Chloride 10 ml 07/07/18 02:49 Sodium Chloride Flush Syringe 10 Ml IV PRN PRN LINE FLUSH
--- NOTE | 2018-07-10 10:34 | Progress Note ---
Assessment and Plan Cultures: 07/06/2018 Peritoneal Dialysate: GNR 07/07/2018:Peritoneal Dialysate: no growth in 48 hours 07/06/2018 Blood: in progress: no growth to date 07/07/2018 Stool: negative A/P: 38-year old female with a past medical history of hypertension, hypothyroidism, end-stage renal disease on peritoneal dialysis, presented to the emergency room on 07/06/18 with complaints of midepigastric abdominal pain, described as constant sharpeness that waxes and wanes. She also stated that her peritoneal dialysis fluid became cloudy, she then went to her [employer] and was placed on antibiotics and instructed to come to [facility] ED. 1. Sepsis on admission: Resolved. Source likely PD associated Peritonitis.. No fever. Presented to [facility] Dialysis clinic prior to admission and was treated empirically with intraperitoneal Ancef and Fortaz. Cultures were drawn at the dialysis clinic and are pending.. Peritoneal Cultures show GNR. Blood cultures show no growth to date. . Currently being treated with Cefepime., discontinue Vancomycin. 2. GNR Peritonitis: PD catheter peritonitis. Peritoneal fluid shows WBC 9925, RBC 525, Seg, 89.0, Lymphocytes 8.0, Monocytes 3.0, Eosnophils 0, Basophils 0. Previous admission 05/20/18 for sepsis ,etio. peritonitis. Repeat Peritoneal dialysate cultures show no growth in 48 hours. 3. ESRD on peritoneal dialysis; antibiotics renally dosed. 4. Morbid Obesity: Plan: -f/u Blood cultures -f/u peritoneal dialysate cultures for ID and SHYLA's -Continue Cefepime 1 gm IV every 24 hours, -discontinue Vancomycin [facility] M: [id number] O:[phone] Subjective Date of service: 07/10/18 Interval history: Patient seen and examined. Sitting up in chair on PD dialysis, no acute distress. Denies abdominal pain. Objective - Exam Narrative Exam: Constitutional: Alert, cooperative. No acute distress. Morbid obesity Head, Ears, Nose: Normocephalic, atraumatic. External ears, nose normal Eyes: Conjunctivae/corneas clear. No icterus. No ptosis. Neck: Supple, no meningeal signs Oral: dentition good, no thrush Cardiovascular: S1, S2 normal. Respiratory: Good air entry, clear to auscultation bilaterally GI: Soft, tender, bowel sounds normal. + PD catheter Musculoskeletal: No pedal edema, no cyanosis. Skin: No rash or abscess. Hem/Lymphatic: No palpable cervical or supraclavicular nodes. No lymphangitis Psych: Mood ok. Affect normal Neurological: Awake, alert, oriented. - Constitutional Vitals: Vital Signs Temp Pulse Resp BP Pulse Ox 97.8 F 96 H 16 94/67 95 07/10/18 08:22 07/10/18 06:35 07/10/18 08:22 07/10/18 08:22 07/10/18 04:35 Temperature -Last 24 Hours Temperature 97.8 F Temperature 98.0 F Temperature 98.0 F Temperature 98.0 F - Labs CBC & Chem 7: 07/10/18 04:47 07/10/18 04:47 Labs: Abnormal lab results 07/10/18 07/10/18 Range/Units 04:47 04:47 RDW 15.6 H (13.2-15.2) % Potassium 3.4 L (3.6-5.0) mmol/L Chloride 90.2 L (98-107) mmol/L BUN 43 H (7-17) mg/dL Creatinine 17.4 H (0.7-1.2) mg/dL Glucose 164 H (65-100) mg/dL
[2018-07-10] MEDS: ROCALTROL PO SCH (11:00)
[2018-07-10] MEDS: LOVENOX SUB-Q SCH (11:00)
[2018-07-10] MEDS: SODIUM CHLORIDE FLUSH SYRINGE 10 ML IV SCH ×2 (11:00→22:55)
[2018-07-10] MEDS: TUMS PO SCH ×2 (11:00→22:55)
[2018-07-10] MEDS: PROTONIX PO SCH (11:00)
--- NOTE | 2018-07-10 16:17 | Progress Note ---
Assessment and Plan Assessment and plan: Patient is 38 yo with hypertension, hypothyroidism, ESRD on peritoneal dialysis, presented with abdominal pain, nausea and vomiting. Peritoneal dialysis confirmed spontanous bacterial peritonitis. She has sepsis due to SBP. Nephrology and ID Physician consulted, following. Culture of peritoneal diasylat e growing Gram neg reta. She is on Cefepime. I discussed with ID and they recommend wait for ID and sensitivity from culture before dc home likely in 1-2 days. Sepsis due to peritonitis On Cefepime, Vancomycin ID Physician following Peritonitis Peritoneal dialysis he relates culture growing gram-negative rods Continue IV antibiotics ID physician following ESRD on peritoneal dialysis Nephrology managing HTN BP low. hold Clonidine Hypotension. Monitor Hypothyroidism nausea and vomiting due to sepsis,peritonitis. Improvoing Zofran, Reglan DVT prophylaxis with Lovenox Full code status History Interval history: Patient with ESRD with sepsis due to SBP Less nausea and vomiting Less abd pain Hospitalist Physical - Physical exam Narrative exam: GEN: Not in acute distress, lying in bed, morbidly obese HEENT: Normocephalic, atraumatic, Neck: supple, No JVD heart: S1 and S2 reg, no murmurs, rubs or gallop Lungs: Clear to auscultation bilaterally, no wheeze Abd:soft, mild mid abd tender, non distended, normal bowel sounds,PD catheter Ext: No edema,no clubbing, no cyanosis, Neuro:Awake,alert,oriented X 3, no focal signs, moves all ext Psych: normal mood - Constitutional Vitals: Temp Pulse Resp BP Pulse Ox 97.8 F 97 H 16 94/67 95 07/10/18 08:22 07/10/18 10:00 07/10/18 08:22 07/10/18 08:22 07/10/18 04:35 Results - Labs CBC & Chem 7: 07/10/18 04:47 07/10/18 04:47 Labs: Laboratory Last Values WBC 9.6 K/mm3 (4.5-11.0) 07/10/18 04:47 RBC 4.34 M/mm3 (3.65-5.03) 07/10/18 04:47 Hgb 13.2 gm/dl (10.1-14.3) 07/10/18 04:47 Hct 39.9 % (30.3-42.9) 07/10/18 04:47 MCV 92 fl (79-97) 07/10/18 04:47 MCH 30 pg (28-32) 07/10/18 04:47 MCHC 33 % (30-34) 07/10/18 04:47 RDW 15.6 % (13.2-15.2) H 07/10/18 04:47 Plt Count 317 K/mm3 (140-440) 07/10/18 04:47 Lymph % (Auto) 11.1 % (13.4-35.0) L 07/08/18 04:41 [place] % (Auto) 10.8 % (0.0-7.3) H 07/08/18 04:41 Eos % (Auto) 0.1 % (0.0-4.3) 07/08/18 04:41 Baso % (Auto) 0.3 % (0.0-1.8) 07/08/18 04:41 Lymph # 1.4 K/mm3 (1.2-5.4) 07/08/18 04:41 [place] # 1.4 K/mm3 (0.0-0.8) H 07/08/18 04:41 Eos # 0.0 K/mm3 (0.0-0.4) 07/08/18 04:41 Baso # 0.0 K/mm3 (0.0-0.1) 07/08/18 04:41 Seg Neutrophils % 77.7 % (40.0-70.0) H 07/08/18 04:41 Seg Neutrophils # 10.0 K/mm3 (1.8-7.7) H 07/08/18 04:41 Sodium 142 mmol/L (137-145) 07/10/18 04:47 Potassium 3.4 mmol/L (3.6-5.0) L 07/10/18 04:47 Chloride 90.2 mmol/L (98-107) L 07/10/18 04:47 Carbon Dioxide 28 mmol/L (22-30) 07/10/18 04:47 Anion Gap 27 mmol/L 07/10/18 04:47 BUN 43 mg/dL (7-17) H 07/10/18 04:47 Creatinine 17.4 mg/dL (0.7-1.2) H 07/10/18 04:47 Estimated GFR 3 ml/min 07/10/18 04:47 BUN/Creatinine Ratio 2 % 07/10/18 04:47 Glucose 164 mg/dL (65-100) H 07/10/18 04:47 Calcium 9.1 mg/dL (8.4-10.2) 07/10/18 04:47 Total Bilirubin 0.90 mg/dL (0.1-1.2) 07/06/18 19:20 Direct Bilirubin 0.5 mg/dL (0-0.2) H 07/06/18 19:20 Indirect Bilirubin 0.4 mg/dL 07/06/18 19:20 AST 36 units/L (5-40) 07/06/18 19:20 ALT 87 units/L (7-56) H 07/06/18 19:20 Alkaline Phosphatase 186 units/L (35-129) H 07/06/18 19:20 Total Protein 8.7 g/dL (6.3-8.2) H 07/06/18 19:20 Albumin 3.8 g/dL (3.9-5) L 07/06/18 19:20 Albumin/Globulin Ratio 0.8 % 07/06/18 19:20 Lipase 66 units/L (13-60) H 07/06/18 19:20 Fluid Type Peritoneal 07/09/18 12:09 Fluid Color Straw 07/09/18 12:09 Fluid Appearance Clear 07/09/18 12:09 Fluid WBC 50 /mm3 07/09/18 12:09 Fluid RBC 4 /mm3 07/09/18 12:09 Fluid Seg Neutrophils 44.0 % 07/09/18 12:09 Fluid Lymphocytes 15.0 % 07/09/18 12:09 Fluid Reactive Lymphs 0 % 07/09/18 12:09 Fluid Monocytes 41.0 % 07/09/18 12:09 Fluid Eosinophils 0 % 07/09/18 12:09 Fluid Basophils 0 % 07/09/18 12:09 Fluid Comment Diff performed 07/09/18 12:09 Random Vancomycin 4.0 ug/mL (0-40.0) 07/09/18 06:38 C. difficile Toxin A&B Negative (Negative) 07/07/18 22:48 Active Medications - Current Medications Current Medications: Generic Name Dose Route Start Last Admin Trade Name Freq PRN Reason Stop Dose Admin Acetaminophen 650 mg 07/07/18 02:49 Tylenol PO Q4H PRN Pain MILD(1-3)/Fever >100.5/BACH Bisacodyl 10 mg 07/09/18 09:25 Dulcolax [place] QDAY PRN Constipation unrelieved by MOM Calcitriol 0.5 mcg 07/09/18 10:00 07/10/18 11:00 Rocaltrol PO 0.5 mcg QDAY [facility] Administration Calcium Carbonate/Glycine 1,000 mg 07/09/18 10:00 07/10/18 11:00 Tums PO 1,000 mg BID PRE[facility] Administration Enoxaparin Sodium 30 mg 07/07/18 10:00 07/10/18 11:00 Lovenox SUB-Q Not Given QDAY [facility] Cefepime HCl 1 gm in 100 mls @ 200 mls/hr 07/10/18 20:00 Maxipime/Ns 1 Gm/100 Ml IV Q24H [facility] Protocol Metoclopramide HCl 5 mg 07/07/18 10:56 07/07/18 20:12 Reglan IV 5 mg Q6H PRN Administration nausea or vomiting Morphine Sulfate 2 mg 07/07/18 03:04 Morphine IV Q4H PRN Pain, Moderate (4-6) Ondansetron HCl 4 mg 07/07/18 02:49 07/08/18 22:15 Zofran IV 4 mg Q4H PRN Administration Nausea And Vomiting Pantoprazole Sodium 40 mg 07/10/18 10:00 07/10/18 11:00 Protonix PO 40 mg DAILY [facility] Administration Peritoneal Dialysis Solution 2,000 ml 07/09/18 20:00 07/10/18 10:00 Dianeal Pd-2 W/2.5% Dextrose IP 2,000 ml Q4H [facility] Administration Sodium Chloride 10 ml 07/07/18 10:00 07/10/18 11:00 Sodium Chloride Flush Syringe 10 Ml IV 10 ml BID PRE[facility] Administration Sodium Chloride 10 ml 07/07/18 02:49 Sodium Chloride Flush Syringe 10 Ml IV PRN PRN LINE FLUSH
[2018-07-10] MEDS: MAXIPIME/NS 1 GM/100 ML 1 GM/100 ML BAG IV SCH (22:55)
[2018-07-10] MEDS: DIANEAL PD-2 W/1.5% DEXTROSE IP SCH (22:55)
[2018-07-11 05:38] LABS: Hemoglobin 13.4 gm/dl (10.1-14.3); Mean Corpuscular HGB Conc 33 % (30-34); Mean Corpuscular Volume 93 fl (79-97); Platelet Count 318 K/mm3 (140-440); Red Blood Count 4.41 M/mm3 (3.65-5.03); Red Cell Distribution Width 15.9 % (13.2-15.2)
[2018-07-11 05:58] LABS: Calcium 9.4 mg/dL (8.4-10.2)
[2018-07-11] MEDS: DIANEAL PD-2 W/1.5% DEXTROSE IP SCH ×4 (06:27→18:00)
--- NOTE | 2018-07-11 09:04 | Progress Note ---
Assessment and Plan Impression * End-stage renal disease * peritonitis * Hypotension * Anemia secondary to ESRD Recommendations * Patient's PD fluid is growing Acinetobacter sensitive to cefipime as well as ceftazidime . * PD fluid cell count has come down to 50. Her abdominal pain has also resolved. * She seems to be responding to current antibiotic regimen. * Plan to continue ceftazidime for a total of 3 weeks. Have arranged for Outpatient intraperitoneal ceftazidime * Continue CAPD with all 1.5% dianeal * Once her blood pressure stabilizes ,Okay to discharge patient home from renal standpoint Subjective Date of service: 07/11/18 Interval history: Patient is comfortable this morning. Denies any shortness of breath. States that her PD fluid is clear. Objective - Vital Signs Vital signs: Vital Signs - 12hr 07/10/18 07/10/18 07/11/18 22:00 23:52 04:40 Temperature 98.0 F 98.4 F Pulse Rate 90 90 110 H Pulse Rate [ 111 H From Monitor] Respiratory 16 18 20 Rate Blood Pressure 91/62 Blood Pressure 97/67 [Left] O2 Sat by Pulse 95 95 98 Oximetry - General Appearance General appearance: well-developed, well-nourished, appears stated age EENT: PERRL, mucous membranes moist Neck: no JVD, no thyromegaly, no carotid bruit, supple Respiratory: Present: Clear to Ascultation Cardiology: regular, normal heart rate, S1S2, no murmurs Gastrointestinal: normal, normoactive bowel sounds, other (PD catheter in place) Integumentary: other (no edema) - Lab 07/11/18 04:33 07/11/18 04:33 Most recent lab results Calcium 9.4 mg/dL (8.4-10.2) 07/11/18 04:33 Medications & Allergies - Medications Allergies/Adverse Reactions: Allergies No Known Allergies Allergy (Verified 05/13/14 18:02) Home Medications: Home Medications Medication Instructions Recorded Confirmed Last Taken Type Bisacodyl [Dulcolax suppos] 10 mg [place] QDAY PRN supp.rect 05/21/17 07/07/18 Unknown Rx Calcitriol [Rocaltrol] 0.5 mcg PO QDAY capsule 05/21/17 07/07/18 1 Day Ago Rx ~07/06/18 Calcium Carbonate [Tums] 1,000 mg PO BID tablet 05/21/17 07/07/18 1 Day Ago Rx ~07/06/18 Dialysate Lo Michael 1.5% Soln 2,000 ml IP Q4H bag 05/21/17 07/07/18 Unknown Rx [Dianeal Low Calcium W/1.5% Dextrose] Pantoprazole [Protonix] 40 mg PO QDAY 07/07/18 07/07/18 2 Days Ago History ~07/05/18 cloNIDine [Catapres] 0.1 mg PO QHS 07/07/18 07/07/18 2 Days Ago History ~07/05/18 Active Medications: Generic Name Dose Route Start Last Admin Trade Name Freq PRN Reason Stop Dose Admin Acetaminophen 650 mg 07/07/18 02:49 Tylenol PO Q4H PRN Pain MILD(1-3)/Fever >100.5/BACH Bisacodyl 10 mg 07/09/18 09:25 Dulcolax [place] QDAY PRN Constipation unrelieved by MOM Calcitriol 0.5 mcg 07/09/18 10:00 07/10/18 11:00 Rocaltrol PO 0.5 mcg QDAY [facility] Administration Calcium Carbonate/Glycine 1,000 mg 07/09/18 10:00 07/10/18 22:55 Tums PO Not Given BID [facility] Enoxaparin Sodium 30 mg 07/07/18 10:00 07/10/18 11:00 Lovenox SUB-Q Not Given QDAY [facility] Cefepime HCl 1 gm in 100 mls @ 200 mls/hr 07/10/18 20:00 07/10/18 22:55 Maxipime/Ns 1 Gm/100 Ml IV 200 mls/hr Q24H [facility] Administration Protocol Metoclopramide HCl 5 mg 07/07/18 10:56 07/07/18 20:12 Reglan IV 5 mg Q6H PRN Administration nausea or vomiting Morphine Sulfate 2 mg 07/07/18 03:04 Morphine IV Q4H PRN Pain, Moderate (4-6) Ondansetron HCl 4 mg 07/07/18 02:49 07/08/18 22:15 Zofran IV 4 mg Q4H PRN Administration Nausea And Vomiting Pantoprazole Sodium 40 mg 07/10/18 10:00 07/10/18 11:00 Protonix PO 40 mg DAILY [facility] Administration Peritoneal Dialysis Solution 2,000 ml 07/10/18 19:00 07/11/18 06:27 Dianeal Pd-2 W/1.5% Dextrose IP 2,000 ml Q6HR [facility] Administration Sodium Chloride 10 ml 07/07/18 10:00 07/10/18 22:55 Sodium Chloride Flush Syringe 10 Ml IV 10 ml BID PRE[facility] Administration Sodium Chloride 10 ml 07/07/18 02:49 Sodium Chloride Flush Syringe 10 Ml IV PRN PRN LINE FLUSH
[2018-07-11] MEDS: PROTONIX PO SCH (10:58)
[2018-07-11] MEDS: TUMS PO SCH ×2 (10:58→22:47)
[2018-07-11] MEDS: ROCALTROL PO SCH (10:58)
[2018-07-11] MEDS: LOVENOX SUB-Q SCH (10:59)
[2018-07-11] MEDS: SODIUM CHLORIDE FLUSH SYRINGE 10 ML IV SCH ×2 (10:59→22:48)
--- NOTE | 2018-07-11 12:05 | Progress Note ---
Assessment and Plan Assessment and plan: Sepsis due to peritonitis On Cefepime, Vancomycin discontinued ID Physician following Peritonitis Peritoneal dialysis he relates culture growing gram-negative rods Continue IV antibiotics ID physician following ESRD on peritoneal dialysis Nephrology managing HTN BP low. hold Clonidine Hypotension. Monitor Hypothyroidism nausea and vomiting due to sepsis,peritonitis. Resolved Zofran, Reglan as needed DVT prophylaxis with Lovenox History Interval history: Patient is 38 yo with hypertension, hypothyroidism, ESRD on peritoneal dialysis, presented with abdominal pain, nausea and vomiting. Peritoneal dialysis confirmed spontanous bacterial peritonitis. She has sepsis due to SBP. Nephrology and ID Physician consulted, following. Culture of peritoneal diasylate growing Gram neg reta. She is on Cefepime. ID recommended wait for ID and sensitivity from culture before dc home likely in 1-2 days. Hospitalist Physical - Constitutional Vitals: Temp Pulse Resp BP Pulse Ox 97.7 F 105 H 18 82/61 97 07/11/18 08:27 07/11/18 08:27 07/11/18 08:27 07/11/18 08:27 07/11/18 08:27 General appearance: Present: no acute distress, well-nourished - EENT Eyes: Present: PERRL, EOM intact ENT: hearing intact, clear oral mucosa, dentition normal - Neck Neck: Present: supple, normal ROM - Respiratory Respiratory effort: normal Respiratory: bilateral: CTA - Cardiovascular Rhythm: regular Heart Sounds: Present: S1 & S2. Absent: gallop, rub - Extremities Extremities: no ischemia, No edema, Full ROM - Abdominal General gastrointestinal: soft, non-tender, non-distended, normal bowel sounds - Integumentary Integumentary: Present: clear, warm, dry - Neurologic Neurologic: CNII-XII intact, moves all extremities Results - Labs CBC & Chem 7: 07/11/18 04:33 07/11/18 04:33 Labs: Laboratory Last Values WBC 10.8 K/mm3 (4.5-11.0) 07/11/18 04:33 RBC 4.41 M/mm3 (3.65-5.03) 07/11/18 04:33 Hgb 13.4 gm/dl (10.1-14.3) 07/11/18 04:33 Hct 41.0 % (30.3-42.9) 07/11/18 04:33 MCV 93 fl (79-97) 07/11/18 04:33 MCH 30 pg (28-32) 07/11/18 04:33 MCHC 33 % (30-34) 07/11/18 04:33 RDW 15.9 % (13.2-15.2) H 07/11/18 04:33 Plt Count 318 K/mm3 (140-440) 07/11/18 04:33 Lymph % (Auto) 11.1 % (13.4-35.0) L 07/08/18 04:41 [place] % (Auto) 10.8 % (0.0-7.3) H 07/08/18 04:41 Eos % (Auto) 0.1 % (0.0-4.3) 07/08/18 04:41 Baso % (Auto) 0.3 % (0.0-1.8) 07/08/18 04:41 Lymph # 1.4 K/mm3 (1.2-5.4) 07/08/18 04:41 [place] # 1.4 K/mm3 (0.0-0.8) H 07/08/18 04:41 Eos # 0.0 K/mm3 (0.0-0.4) 07/08/18 04:41 Baso # 0.0 K/mm3 (0.0-0.1) 07/08/18 04:41 Seg Neutrophils % 77.7 % (40.0-70.0) H 07/08/18 04:41 Seg Neutrophils # 10.0 K/mm3 (1.8-7.7) H 07/08/18 04:41 Sodium 143 mmol/L (137-145) 07/11/18 04:33 Potassium 3.2 mmol/L (3.6-5.0) L 07/11/18 04:33 Chloride 90.1 mmol/L (98-107) L 07/11/18 04:33 Carbon Dioxide 30 mmol/L (22-30) 07/11/18 04:33 Anion Gap 26 mmol/L 07/11/18 04:33 BUN 42 mg/dL (7-17) H 07/11/18 04:33 Creatinine 18.1 mg/dL (0.7-1.2) H 07/11/18 04:33 Estimated GFR 3 ml/min 07/11/18 04:33 BUN/Creatinine Ratio 2 % 07/11/18 04:33 Glucose 125 mg/dL (65-100) H 07/11/18 04:33 Calcium 9.4 mg/dL (8.4-10.2) 07/11/18 04:33 Total Bilirubin 0.90 mg/dL (0.1-1.2) 07/06/18 19:20 Direct Bilirubin 0.5 mg/dL (0-0.2) H 07/06/18 19:20 Indirect Bilirubin 0.4 mg/dL 07/06/18 19:20 AST 36 units/L (5-40) 07/06/18 19:20 ALT 87 units/L (7-56) H 07/06/18 19:20 Alkaline Phosphatase 186 units/L (35-129) H 07/06/18 19:20 Total Protein 8.7 g/dL (6.3-8.2) H 07/06/18 19:20 Albumin 3.8 g/dL (3.9-5) L 07/06/18 19:20 Albumin/Globulin Ratio 0.8 % 07/06/18 19:20 Lipase 66 units/L (13-60) H 07/06/18 19:20 Fluid Type Peritoneal 07/09/18 12:09 Fluid Color Straw 07/09/18 12:09 Fluid Appearance Clear 07/09/18 12:09 Fluid WBC 50 /mm3 07/09/18 12:09 Fluid RBC 4 /mm3 07/09/18 12:09 Fluid Seg Neutrophils 44.0 % 07/09/18 12:09 Fluid Lymphocytes 15.0 % 07/09/18 12:09 Fluid Reactive Lymphs 0 % 07/09/18 12:09 Fluid Monocytes 41.0 % 07/09/18 12:09 Fluid Eosinophils 0 % 07/09/18 12:09 Fluid Basophils 0 % 07/09/18 12:09 Fluid Comment Diff performed 07/09/18 12:09 Random Vancomycin 4.0 ug/mL (0-40.0) 07/09/18 06:38 C. difficile Toxin A&B Negative (Negative) 07/07/18 22:48 Active Medications - Current Medications Current Medications: Generic Name Dose Route Start Last Admin Trade Name Freq PRN Reason Stop Dose Admin Acetaminophen 650 mg 07/07/18 02:49 Tylenol PO Q4H PRN Pain MILD(1-3)/Fever >100.5/BACH Bisacodyl 10 mg 07/09/18 09:[address] QDAY PRN Constipation unrelieved by MOM Calcitriol 0.5 mcg 07/09/18 10:00 07/11/18 10:58 Rocaltrol PO 0.5 mcg QDAY PREET Administration Calcium Carbonate/Glycine 1,000 mg 07/09/18 10:00 07/11/18 10:58 Tums PO 1,000 mg BID PREET Administration Enoxaparin Sodium 30 mg 07/07/18 10:00 07/11/18 10:59 Lovenox SUB-Q Not Given QDAY PREET Cefepime HCl 1 gm in 100 mls @ 200 mls/hr 07/10/18 20:00 07/10/18 22:55 Maxipime/Ns 1 Gm/100 Ml IV 200 mls/hr Q24H PREET Administration Protocol Metoclopramide HCl 5 mg 07/07/18 10:56 07/07/18 20:12 Reglan IV 5 mg Q6H PRN Administration nausea or vomiting Morphine Sulfate 2 mg 07/07/18 03:04 Morphine IV Q4H PRN Pain, Moderate (4-6) Ondansetron HCl 4 mg 07/07/18 02:49 07/08/18 22:15 Zofran IV 4 mg Q4H PRN Administration Nausea And Vomiting Pantoprazole Sodium 40 mg 07/10/18 10:00 07/11/18 10:58 Protonix PO 40 mg DAILY PREET Administration Peritoneal Dialysis Solution 2,000 ml 07/10/18 19:00 07/11/18 06:27 Dianeal Pd-2 W/1.5% Dextrose IP 2,000 ml Q6HR PREET Administration Sodium Chloride 10 ml 07/07/18 10:00 07/11/18 10:59 Sodium Chloride Flush Syringe 10 Ml IV 10 ml BID PREET Administration Sodium Chloride 10 ml 07/07/18 02:49 Sodium Chloride Flush Syringe 10 Ml IV PRN PRN LINE FLUSH
--- NOTE | 2018-07-11 13:05 | Progress Note ---
Assessment and Plan Cultures: 07/06/2018 Peritoneal Dialysate: Acientobacter Lwoffii, blair susceptible 07/07/2018:Peritoneal Dialysate: no growth 07/06/2018 Blood: in progress: no growth 07/07/2018 Stool: negative A/P: 38-year old female with a past medical history of hypertension, hypothyroidism, end-stage renal disease on peritoneal dialysis, presented to the emergency room on 07/06/18 with complaints of midepigastric abdominal pain, described as constant sharpeness that waxes and wanes. She also stated that her peritoneal dialysis fluid became cloudy, she then went to her Neurologist and was placed on antibiotics and instructed to come to [facility] ED. 1. Sepsis on admission: Resolved. Source likely PD associated Peritonitis.. No fever. Presented to [facility] clinic prior to admission and was treated empirically with intraperitoneal Ancef and Fortaz. Cultures were drawn at the dialysis clinic and are pending.. Peritoneal Cultures show GNR. Blood cultures show no growth to date. . Currently being treated with Cefepime., 2. Acientobacter L woffii Peritonitis: PD catheter peritonitis. Peritoneal fluid shows WBC 9925, RBC 525, Seg, 89.0, Lymphocytes 8.0, Monocytes 3.0, Eosnophils 0, Basophils 0. Previous admission 05/20/18 for sepsis ,etio. peritonitis. Repeat Peritoneal dialysate cultures show no growth. 3. ESRD on peritoneal dialysis; antibiotics renally dosed. 4. Morbid Obesity: Plan: -f/u Blood cultures -Continue Cefepime 1 gm IV every 24 hours, - Agree with discharge on IP Ceftaz times 3 weeks per Nephrology. -Clinically stable , ID is signing off [employer] M: [phone] O:[phone] Subjective Date of service: 07/11/18 Interval history: Patient seen and examined. Sitting up in chair, denies abdominal pain or generalized weakness. No fevers. Objective - Exam Narrative Exam: Constitutional: Alert, cooperative. No acute distress. Morbid obesity Head, Ears, Nose: Normocephalic, atraumatic. External ears, nose normal Eyes: Conjunctivae/corneas clear. No icterus. No ptosis. Neck: Supple, no meningeal signs Oral: dentition good, no thrush Cardiovascular: S1, S2 normal. Respiratory: Good air entry, clear to auscultation bilaterally GI: Soft, tender, bowel sounds normal. + PD catheter Musculoskeletal: No pedal edema, no cyanosis. Skin: No rash or abscess. Hem/Lymphatic: No palpable cervical or supraclavicular nodes. No lymphangitis Psych: Mood ok. Affect normal Neurological: Awake, alert, oriented. - Constitutional Vitals: Vital Signs Temp Pulse Resp BP Pulse Ox 97.7 F 105 H 18 82/61 97 07/11/18 08:27 07/11/18 08:27 07/11/18 08:27 07/11/18 08:27 07/11/18 08:27 Temperature -Last 24 Hours Temperature 97.7 F Temperature 98.4 F Temperature 98.0 F Temperature 98.0 F - Labs CBC & Chem 7: 07/11/18 04:33 07/11/18 04:33 Labs: Abnormal lab results 07/11/18 07/11/18 Range/Units 04:33 04:33 RDW 15.9 H (13.2-15.2) % Potassium 3.2 L (3.6-5.0) mmol/L Chloride 90.1 L (98-107) mmol/L BUN 42 H (7-17) mg/dL Creatinine 18.1 H (0.7-1.2) mg/dL Glucose 125 H (65-100) mg/dL
[2018-07-11] MEDS: MAXIPIME/NS 1 GM/100 ML 1 GM/100 ML BAG IV SCH (21:45)
[2018-07-12] MEDS ORDERED: CEPACOL X STRENGTH MM PRN (00:29)
[2018-07-12] MEDS: DIANEAL PD-2 W/1.5% DEXTROSE IP SCH ×3 (06:05→12:55)
--- NOTE | 2018-07-12 09:38 | Progress Note ---
Assessment and Plan Impression * End-stage renal disease * peritonitis * Hypotension * Anemia secondary to ESRD Recommendations * Patient's PD fluid is growing Acinetobacter sensitive to cefipime as well as ceftazidime . * PD fluid cell count has come down to 50. Her abdominal pain has also resolved. * She seems to be responding to current antibiotic regimen. * Plan to continue ceftazidime for a total of 3 weeks. Have arranged for Outpatient intraperitoneal ceftazidime * Continue CAPD with all 1.5% dianeal * Blood pressure remains low normal. She is currently asymptomatic. Continue to hold her blood pressure medication * Okay to discharge patient home from renal standpoint Subjective Date of service: 07/12/18 Interval history: Patient is comfortable this morning. Denies any shortness of breath. States that her PD fluid is clear. Objective - Vital Signs Vital signs: Vital Signs - 12hr 07/11/18 07/12/18 22:00 04:44 Temperature 98.1 F Pulse Rate 91 H 93 H Pulse Rate [ 91 H From Monitor] Respiratory 16 20 Rate Blood Pressure 96/71 O2 Sat by Pulse 95 92 Oximetry - General Appearance General appearance: well-developed, well-nourished, appears stated age EENT: PERRL, mucous membranes moist Neck: no JVD, no thyromegaly, no carotid bruit, supple Respiratory: Present: Clear to Ascultation Cardiology: regular, normal heart rate, S1S2, no murmurs Gastrointestinal: normal, normoactive bowel sounds, other (PD catheter in place) Integumentary: no rash, other (no edema) - Lab 07/11/18 04:33 07/11/18 04:33 Most recent lab results Calcium 9.4 mg/dL (8.4-10.2) 07/11/18 04:33 Medications & Allergies - Medications Allergies/Adverse Reactions: Allergies No Known Allergies Allergy (Verified 05/13/14 18:02) Home Medications: Home Medications Medication Instructions Recorded Confirmed Last Taken Type Bisacodyl [Dulcolax suppos] 10 mg [place] QDAY PRN supp.rect 05/21/17 07/07/18 Unknown Rx Calcitriol [Rocaltrol] 0.5 mcg PO QDAY capsule 05/21/17 07/07/18 1 Day Ago Rx ~07/06/18 Calcium Carbonate [Tums] 1,000 mg PO BID tablet 05/21/17 07/07/18 1 Day Ago Rx ~07/06/18 Dialysate Lo [place] 1.5% Soln 2,000 ml IP Q4H bag 05/21/17 07/07/18 Unknown Rx [Dianeal Low Calcium W/1.5% Dextrose] Pantoprazole [Protonix] 40 mg PO QDAY 07/07/18 07/07/18 2 Days Ago History ~07/05/18 cloNIDine [Catapres] 0.1 mg PO QHS 07/07/18 07/07/18 2 Days Ago History ~07/05/18 Active Medications: Generic Name Dose Route Start Last Admin Trade Name Freq PRN Reason Stop Dose Admin Acetaminophen 650 mg 07/07/18 02:49 Tylenol PO Q4H PRN Pain MILD(1-3)/Fever >100.5/BACH Benzocaine/Menthol 1 each 07/12/18 00:29 07/12/18 01:19 Cepacol X Strength MM 1 each Q2HR PRN Administration Sore Throat Bisacodyl 10 mg 07/09/18 09:25 Dulcolax [place] QDAY PRN Constipation unrelieved by MOM Calcitriol 0.5 mcg 07/09/18 10:00 07/11/18 10:58 Rocaltrol PO 0.5 mcg QDAY PREET Administration Calcium Carbonate/Glycine 1,000 mg 07/09/18 10:00 07/11/18 22:47 Tums PO Not Given BID [facility] Enoxaparin Sodium 30 mg 07/07/18 10:00 07/11/18 10:59 Lovenox SUB-Q Not Given QDAY [facility] Cefepime HCl 1 gm in 100 mls @ 200 mls/hr 07/10/18 20:00 07/11/18 21:45 Maxipime/Ns 1 Gm/100 Ml IV 200 mls/hr Q24H PREET Administration Protocol Metoclopramide HCl 5 mg 07/07/18 10:56 07/07/18 20:12 Reglan IV 5 mg Q6H PRN Administration nausea or vomiting Morphine Sulfate 2 mg 07/07/18 03:04 Morphine IV Q4H PRN Pain, Moderate (4-6) Ondansetron HCl 4 mg 07/07/18 02:49 07/08/18 22:15 Zofran IV 4 mg Q4H PRN Administration Nausea And Vomiting Pantoprazole Sodium 40 mg 07/10/18 10:00 07/11/18 10:58 Protonix PO 40 mg DAILY PREET Administration Peritoneal Dialysis Solution 2,000 ml 07/10/18 19:00 07/12/18 06:05 Dianeal Pd-2 W/1.5% Dextrose IP 2,000 ml Q6HR PREET Administration Sodium Chloride 10 ml 07/07/18 10:00 07/11/18 22:48 Sodium Chloride Flush Syringe 10 Ml IV 10 ml BID PREET Administration Sodium Chloride 10 ml 07/07/18 02:49 Sodium Chloride Flush Syringe 10 Ml IV PRN PRN LINE FLUSH
--- NOTE | 2018-07-12 09:39 | Discharge Summary ---
Providers - Providers Date of Admission: 07/07/18 02:49 Date of discharge: 07/12/18 Attending physician: JAVIER ELIAS 07/07/18 02:26 Consult to Physician [CONS] Urgent Comment: Consulting Provider: ERIC LARA Physician Instructions: Reason For Exam: SBP 07/07/18 07:29 Consult to Physician [CONS] Routine Comment: Consulting Provider: ZENIA MORGAN Physician Instructions: Reason For Exam: abd pain,leukocytosis,pritoneal dialysis Primary care physician: LOGAN ARGUETA Hospitalization Reason for admission: sepsis Condition: Fair Hospital course: 38-year old female with a past medical history of hypertension, hypothyroidism, end-stage renal disease on peritoneal dialysis, presented to the emergency room on 07/06/18 with complaints of midepigastric abdominal pain, described as constant sharpeness that waxes and wanes. She also stated that her peritoneal d ialysis fluid became cloudy, she then went to her Team Coordinator and was placed on antibiotics and instructed to come to [facility] ED. The patient was admitted with diagnosis of sepsis associated with PD peritonitis. Patient with peritoneal fluid showing WBC 9925, RBC 525, Seg, 89.0, Lymphocytes 8.0, Monocytes 3.0, Eosnophils 0, Basophils 0. 07/06/17 peritoneal dialysate cultures reveal Acinetobacter L aracelii Previous admission 05/20/18 for sepsis ,etio. peritonitis. Repeat Peritoneal dialysate cultures show no growth. The patient was treated with cefepime 1 g IV every 24 hours. Infectious diseases consulted and continue antibiotics with transitioning and discharged to antibiotics of IP Ceftaz times 3 weeks per Nephrology. Case management and nephrology to arrange for antibiotics. Dedicated discharge time 32 minutes. Disposition: - TO HOME OR SELFCARE Time spent for discharge: 32 - Discharge Diagnoses (1) ESRD (end stage renal disease) Status: Acute (2) Leukocytosis Status: Acute Comment: I continue to peritonitis positive for Escherichia coli treat with vancomycin until the . (3) Peritonitis associated with peritoneal dialysis Status: Acute (4) Gastroenteritis Status: Acute Comment: Peritonitis most likely secondary to use of peritoneal dialysis. Blood cultures positive for Escherichia coli treated with Vanco. Patient will be stable for discharge. (5) Sepsis Status: Acute Qualifiers: Sepsis type: sepsis due to unspecified organism Qualified Code(s): A41.9 - Sepsis, unspecified organism Comment: Sepsis secondary to peritonitis as she feels good symptoms resolved blood cultures show gram-positive cocci patient to be treated with vancomycin until the . Patient has vancomycin be given at home with dialysis. Core Measure Documentation - Palliative Care Palliative Care/ Comfort Measures: Not Applicable - Core Measures Any of the following diagnoses?: none Exam - Constitutional Vitals: Temp Pulse Resp BP Pulse Ox 98.1 F 93 H 20 96/71 92 07/12/18 04:44 07/12/18 04:44 07/12/18 04:44 07/12/18 04:44 07/12/18 04:44 General appearance: Present: no acute distress, well-nourished - EENT Eyes: Present: PERRL ENT: hearing intact, clear oral mucosa - Neck Neck: Present: supple, normal ROM - Respiratory Respiratory effort: normal Respiratory: bilateral: CTA - Cardiovascular Heart Sounds: Present: S1 & S2. Absent: rub, click - Extremities Extremities: pulses symmetrical, No edema Peripheral Pulses: within normal limits - Abdominal General gastrointestinal: Present: soft, non-tender, non-distended, normal bowel sounds Female genitourinary: Present: normal - Integumentary Integumentary: Present: clear, warm, dry - Musculoskeletal Musculoskeletal: gait normal, strength equal bilaterally - Psychiatric Psychiatric: appropriate mood/affect, intact judgment & insight - Neurologic Neurologic: CNII-XII intact, moves all extremities Plan Activity: advance as tolerated Weight Bearing Status: Weight Bear as Tolerated Diet: renal Special Instructions: other (IP Ceftaz times 3 weeks per Nephrology. ) Follow up with: LOGAN ARGUETA MD [Primary Care Provider] - 3-5 Days VASQUEZ MYERS MD [Staff Physician] - 7 Days FELI MICHAEL MD [Staff Physician] - 7 Days Prescriptions: cloNIDine [Catapres] 0.1 mg PO QHS #30 tablet Pantoprazole [Protonix TAB] 40 mg PO DAILY #30 tablet Calcitriol [Rocaltrol] 0.5 mcg PO QDAY #30 capsule Calcium Carbonate [Tums] 1,000 mg PO BID #50 tablet
[2018-07-12] MEDS: LOVENOX SUB-Q SCH (10:00)
[2018-07-12 10:25] VITALS: BP 78/55
[2018-07-12] MEDS: PROTONIX PO SCH (12:55)
[2018-07-12] MEDS: ROCALTROL PO SCH (12:55)
[2018-07-12] MEDS: TUMS PO SCH (12:55)
[2018-07-12] MEDS: SODIUM CHLORIDE FLUSH SYRINGE 10 ML IV SCH (12:55)
== END 2018-07-12 14:30 | disposition home or self-care (01) | DRG 919 ==
LOC: ED 18:34 → 4A 07-07 02:49
PROVIDERS: ADMIT Internal Medicine; ATTEND Hospitalist
DX: T85.71XA Infection and inflammatory reaction due to peritoneal dialysis catheter, initial encounter (principal); A41.9 Sepsis, unspecified organism; N18.6 End stage renal disease; K65.2 Spontaneous bacterial peritonitis; I12.0 Hypertensive chronic kidney disease with stage 5 chronic kidney disease or end stage renal disease; Z68.41 Body mass index [BMI] 40.0-44.9, adult; D63.1 Anemia in chronic kidney disease; K52.9 Noninfective gastroenteritis and colitis, unspecified; E66.01 Morbid (severe) obesity due to excess calories; Y83.8 Other surgical procedures as the cause of abnormal reaction of the patient, or of later complication, without mention of misadventure at the time of the procedure; E87.6 Hypokalemia; E89.0 Postprocedural hypothyroidism; Z79.899 Other long term (current) drug therapy; Z82.49 Family history of ischemic heart disease and other diseases of the circulatory system; Y92.89 Other specified places as the place of occurrence of the external cause
CPT/HCPCS: 36415; 74176; 80048; 80076; 80202; 83690; 85025; 85027; 87040; 87045; 87076; 87116; 87186; 87324; 89051; 96374; 96375; 99285; G0378; C9113; J0692; J1650; J2405; J2543; J2765; J3010; J3370; J7040